=== PATIENT | male | born 1940 | race Caucasian/White ===

== ENCOUNTER 2018-09-21 17:48 | Observation (INO) | payer MEDICARE, OTHER, SELFPAY ==
[2018-09-16 09:09] VITALS: BMI 24.0
[2018-09-21] VITALS (12 sets, daily range): BP systolic 124–154; BP diastolic 64–87; PULSE 53–66; RESP 15–17; TEMP 36–36.8; O2SAT 93–97; BMI 24.2
[2018-09-21] MEDS: LACTATED RINGERS 1,000 ML 42 ML IV (09:52)
--- NOTE | 2018-09-21 10:11 | PM.PREOP ---
Pre-operative Note Interval Note History & Physical reviewed/Exam performed by Physician: Yes Changes to H&P: No H&P completed within 30 days and has changed as indicated here:: Patient seen and examined in the preoperative area. Surgical site marked accordingly. History physical examination from September 08, 2018 has not changed. Proceed with hernia repair today as planned.
[2018-09-21] MEDS: CEFAZOLIN 2 GM/100 ML FROZ.PIGGY IV (10:22)
--- NOTE | 2018-09-21 10:46 | SUR.OPER ---
Supine on padded OR bed, head on pillow, arms secured on padded arm boards at <90 degrees abduction, legs uncrossed, safety belt at thigh, tape over blanket over lower legs.
[2018-09-21] MEDS: CEFAZOLIN 1 GM VIAL IV (10:51)
[2018-09-21] MEDS: BUPIVACAINE 0.5% (PF) VIAL 30 ML INJ (10:52)
[2018-09-21] MEDS: LIDOCAINE 1% W/EPI INJ 20 ML INJ (10:53)
--- NOTE | 2018-09-21 11:53 | PM.OP.1 ---
Operative Date/Time/Diagnoses Date of procedure: 09/21/18 Time of procedure: 11:53 Pre-op diagnosis: Symptomatic right inguinal hernia Post-op diagnosis: other (Symptomatic reducible indirect right inguinal hernia) Procedure & Clinicians Procedure: Open right inguinal hernia repair with mesh Same procedure as scheduled: Yes Indications: 78-year-old male who presented with painful intermittent right inguinal mass. Examination and evaluation were consistent with hernia. Repair was recommended. Surgeon: Trey Carrillo Anesthesia Type: General Operative Notes Findings: 1. Moderate-sized indirect right inguinal hernia sac which was reducible 2. No evidence of direct inguinal hernia 3. Testicles in normal descended position bilaterally at the end the case. Closure Type: primary Specimen(s): none sent Prosthetic devices, grafts, tissues, transplants, or devices: Medium-size Pro Loop polypropylene mesh plug and patch right inguinal canal Applied: other (Mesh as above) Estimated Blood Loss (mL): 5 Blood products transfused: none Procedure in detail: After obtaining informed consent the patient was brought to the operating room placed supine on the table. After satisfactory induction of anesthesia the groin and abdomen including the genitalia were prepped and draped in usual sterile fashion. SCOAP time out was performed per standard protocol. Transverse incision was designed for distance of approximately 4 cm across the lower aspect of the right inguinal canal. Area was infiltrated with a 1 :1 mixture of 1% lidocaine with 1:100,000 epinephrine and 0.5% plain Marcaine for postoperative analgesia. Skin incision was created with 15 scalpel blade followed by the Bovie for hemostasis. Dissection proceeded down through the subcutaneous tissue to the external oblique fascia. A Weitlaner retractor was used to provide exposure. External oblique fascia was divided in the direction of its fibers with a 15 scalpel blade followed by Metzenbaum scissors to the level the external inguinal ring. Edges of the fascia were secured with hemostats and elevated into the operative field. Blunt dissection revealed the iliopubic tract, conjoined tendon, and rectus fascia. Spermatic cord was encircled bluntly with the surgeon's fingers followed by a Kit drain. Meticulous blunt dissection using DeBakey forceps was employed to skeletonize the spermatic cord. A few cremasteric fibers were divided with the Bovie. Findings are as above. Hernia sac was reduced into the abdominal cavity and no other abnormalities appreciated. Mesh was brought onto the operative field and soaked in Ancef solution. Plug was placed into the internal inguinal ring and secured with interrupted 2 0 Vicryl suture to adjacent muscle fibers and transversalis fascia. Onlay patch was placed over the floor of the right inguinal canal and secured circumferentially with interrupted 0 Ethibond suture. Anteriorly the mesh was secured to the conjoined tendon while laterally was secured to the iliopubic tract. Medially mesh was secured to the rectus fascia. Tails of the mesh were brought around the spermatic cord and placed deep to the external oblique fascia where they were secured with a single 0 Ethibond suture. Great care was taken avoid strangulation of the spermatic cord and the defect between the cord and the mesh easily admitted a Joanne clamp. Hemostasis was verified and the wound was irrigated with copious amount sterile saline solution. No evidence of hemorrhage or other issues were appreciated. Mesh was in good position. Spermatic cord was replaced in its usual anatomic position and the external oblique fascia was closed over the cord with running 3 0 Vicryl suture. Subcutaneous tissue was reapproximated with interrupted 3 0 Vicryl suture as well. Skin was closed with running 4 0 Monocryl suture in a subcuticular fashion. Dermal adhesive was applied to the skin. Anesthesia was reversed and patient extubated in the operating room. He was taken recovery stable condition. Complications: none Condition: stable Disposition: PACU Plan for aftercare: 1. Discharge home 2. Follow up in surgery Clinic in 2 weeks
--- NOTE | 2018-09-21 12:39 | SUR.PHASEII ---
1213 To OPD, to bedside. Patient awake, talking, comfortable w/o nausea; fluids given.
--- NOTE | 2018-09-21 12:48 | SUR.PHASEII ---
Patient was dressing, standing up when he noticed a lack of strength in the right leg. Observed patient attempting to stand, right leg gave out. He is dressed, returned to bed. No pain/nausea, otherwise stable. Pudding and coffee given.
--- NOTE | 2018-09-21 13:14 | SUR.PHASEII ---
Dr. Carrillo returned phone call; informed him of RLE weakness. He stated that he had told the staff to expect it (hadn't been passed on). Patient resting comfortably.
--- NOTE | 2018-09-21 13:20 | SUR.PHASEII ---
Lunch ordered, juice given. States that he cannot lift his leg below the knee. Informed patient that the doctor anticipated the weakness.
--- NOTE | 2018-09-21 14:05 | SUR.PHASEII ---
Dr. Carrillo came and spoke with patient/examined surgical site approx. 1350. Will continue to observe the patient until strength is improved. Tolerated lunch well.
--- NOTE | 2018-09-21 14:11 | SUR.PHASEII ---
Ice pack refreshed, states that he is comfortable, continues to be at bedside. Incision remains CDI
--- NOTE | 2018-09-21 17:48 | P.HP_ITS ---
History of Present Illness Date Patient Seen: 09/21/18 Time Patient Seen: 17:44 Chief complaint: inguinal right hernia repair [id number] Narrative: 78-year-old male who underwent otherwise uncomplicated open right inguinal hernia repair with mesh today. He received local anesthesia as part o f the procedure in an effort to prevent postoperative significant groin pain. Following emergence from anesthesia he had right leg weakness and was unable to ambulate appropriately in the PACU. He attempted to stand at the bedside unassisted despite nursing orders to the contrary and promptly slumped to the floor. He states he did not strike his head her back or other issues. He denies any significant pain. However, he is now at least 6 hr postoperative and has weakness of the quadriceps muscle with inability to completely bear weight on the right knee. Physical therapy has consulted and evaluated the patient. He is stable on a walker but remains unstable for independent ambulation. He is therefore admitted for observation. Patient History Medical History Foot fracture, right (Acute) Gastroesophageal reflux disease (Acute) Hyperlipidemia (Acute) Hypertension (Acute) Restless legs syndrome (Acute) Surgical History History of colonoscopy (Acute) Status post excision of lipoma (Acute) Family History Other Diabetes mellitus Social History marital status: household members: spouse occupational status: previously employed Smoking Status: Never smoker alcohol intake: current substance use type: does not use Family & Social History Social History: household members spouse Tobacco & Substance use: Smoking Status Never smoker alcohol intake current Substance Use Type does not use Meds Home Medications Medication Instructions Recorded Confirmed Type zinc 50 mg PO DAILY #0 07/01/11 09/21/18 History Midol 2 tab PO PRN PRN #0 02/20/17 09/21/18 History fluocinonide 0.05 % topical cream 1 applictn TOP DAILY PRN gram 09/08/18 09/21/18 History inulin 2 gram chewable tablet 2 gram PO BEDTIME tab 09/08/18 09/21/18 History losartan 50 mg tablet 50 mg PO DAILY 09/08/18 09/16/18 History melatonin 5 mg capsule 5 mg PO .qhs PRN cap 09/08/18 09/21/18 History omeprazole 20 mg capsule,delayed 20 mg PO DAILY 09/08/18 09/21/18 History release simvastatin 20 mg tablet 20 mg PO BEDTIME 09/08/18 09/21/18 History docusate sodium [Colace] 100 mg PO BID #14 cap 09/21/18 Rx hydromorphone [Dilaudid] 2 mg PO Q4-6H PRN #20 tab 09/21/18 Rx melatonin 10 mg PO BEDTIME PRN 09/21/18 09/21/18 History sennosides [Senokot] 8.6 mg PO BEDTIME #10 tab 09/21/18 Rx Allergies Allergy/AdvReac Type Severity Reaction Status Date / Time codeine [CODEINE] Allergy Mild Nausea Verified 09/21/18 09:58 Antihistamines - Alkylamine Allergy Unknown Testicular Verified 09/21/18 09:58 [ANTIHISTAMINES - ALKYLAMINE] pain Antihistamines - Ethanolamine Allergy Unknown Testicular Verified 09/21/18 09:58 [ANTIHISTAMINES - pain ETHANOLAMINE] Antihistamines - Allergy Unknown Testicular Verified 09/21/18 09:58 Ethylenediamine pain [ANTIHISTAMINES - ETHYLENEDIAMINE] Antihistamines - Piperazine Allergy Unknown Testicular Verified 09/21/18 09:58 [ANTIHISTAMINES - PIPERAZINE] pain erythromycin base AdvReac Mild NAUSEA, Verified 09/21/18 09:58 [ERYTHROMYCIN BASE] rash morphine [MORPHINE] AdvReac Mild Nausea Verified 09/21/18 09:58 lisinopril AdvReac Cough Verified 09/21/18 09:58 Review of Systems Review of Systems All systems reviewed & are unremarkable except as noted in HPI and below Exam Vital Signs (past 8 hours): - 09/21/18 09:52 09/21/18 11:46 09/21/18 11:49 Temperature 97.4 F L 96.8 F L Pulse Rate 53 L 60 58 L Respiratory Rate 15 15 15 Blood Pressure 154/85 H 124/64 126/64 Pulse Oximetry 97 96 95 09/21/18 11:55 09/21/18 12:10 09/21/18 12:23 Temperature 96.8 F L 97.8 F Pulse Rate 64 60 59 L Respiratory Rate 16 16 15 Blood Pressure 135/68 134/78 129/76 Pulse Oximetry 94 94 09/21/18 13:26 09/21/18 14:20 Temperature 97.7 F 97.3 F L Pulse Rate 56 L 59 L Respiratory Rate 16 16 Blood Pressure 149/87 H 145/78 H Pulse Oximetry 95 97 Oxygen Delivery Method Room Air Narrative Exam Narrative: Elderly male in no acute distress. Alert oriented x3. is at the bedside regular rate and rhythm clear to auscultation in both lung maldonado. No wheezes abdomen soft, nondistended, nontender incision clean, dry, and intact he has limited ability to extend the knee. Flexion of the knee is preserved. He can raise the hip but does not appear to be completely tender that area. I see no obvious deformities. No significant edema. Objective Labs Labs: Pelvis and right knee x-rays pending. Assessment & Plan Assessment & Plan narrative: 78-year-old male with ongoing weakness following inadvertent right femoral nerve block during otherwise uncomplicated open right inguinal hernia repair. However, he did have a fall in the PACU. I see no obvious fractures or dislocations, but we will obtain x-rays as above. Otherwise he will be admitted for overnight observation and ongoing physical therapy. Tentatively planned discharge tomorrow as I suspect this will resolve. All above discussed with the patient and his . Orders written.
--- NOTE | 2018-09-21 17:59 | DI.RAD.S_ITS ---
PROCEDURE: XR PELVIS 1-2V INDICATIONS: pain, right leg weakness after falling TECHNIQUE: 1 view(s) of the pelvis acquired. COMPARISON: [facility], , PELVIS W UNILATERAL HIP LEFT, 05/22/2010, 0:12. FINDINGS: Bones: No fractures or dislocations. No suspicious bony lesions. Soft tissues: Visualized bowel gas pattern is normal. No suspicious soft tissue calcifications. IMPRESSION: No acute fracture. No osseous lesion. If clinical suspicion and/or symptoms persist, further assessment with repeat plainfilms, or advanced imaging (e.g., CT, MRI, or bone scan) may be helpful for further assessment. Dictated by: Angela Amor M.D. on 09/21/2018 at 18:34 Approved by: Angela Amor M.D. on 09/21/2018 at 18:34
--- NOTE | 2018-09-21 17:59 | DI.RAD.S_ITS ---
PROCEDURE: XR KNEE RT 3V INDICATIONS: pain, weakness after falling TECHNIQUE: 3 views of the knee were acquired. COMPARISON: None. FINDINGS: Bones: No fractures or dislocations. No suspicious bony lesions. Soft tissues: No joint effusion. No suspicious soft tissue calcifications. IMPRESSION: No acute fracture. No osseous lesion. If clinical suspicion and/or symptoms persist, further assessment with repeat plainfilms, or advanced imaging (e.g., CT, MRI, or bone scan) may be helpful for further assessment. Dictated by: Angela Amor M.D. on 09/21/2018 at 18:34 Approved by: Angela Amor M.D. on 09/21/2018 at 18:35
--- NOTE | 2018-09-21 18:33 | SUR.PHASEII ---
Addendum entered by Randi Walton R.N. 09/21/18 18:49: R groin remains intact with surgical glue, some bruising at sight no swelling, some bruising to underside of penis and scrotum, no swelling, ice pack replaced to area. Original Note: Assumed care of pt at 1710 from Kun FIORE. Pt attempted to stand with assist with walker and r leg haven when weigh bears. Bladder appeared distended, pt asked to void in urinal unable.Bladder scanned showed over 900mls. Dr. Carrillo notified I&O cath ordered and completed, 925mls clear yellow urine out. Dr. Carrillo examined pt at bedside- xrays ordered, pt to stay over night, Felisa FIORE Coordinator notified, room 205 available. Pt transported up to room via stretcher, after stopping off at radiology for xrays to be done. Pt left in room under the care of ADEBAYO Hernandez and left in stable condition.
--- NOTE | 2018-09-21 20:01 | PM.PN.1 ---
Subjective Date Patient Seen: 09/21/18 Time Patient Seen: 20:01 Interval history: Patient denies any current pain. Still has numbness over the anterior distal thigh, patella, and pretibial area down to the dorsum of the foot. No numbness elsewhere. Now able to extend his knee more readily with full range of motion however remained somewhat weak compared the left side. Flexion remains normal at the knee. Dorsiflexion of the foot as well as extension at the ankle is completely normal. He is eat dinner and has no nausea vomiting. No pain at his incision. No abdominal pain. He has not urinated since undergoing straight catheterization in the PACU prior to admission. Exam Vital Signs (past 8 hours): - 09/21/18 12:10 09/21/18 12:23 09/21/18 13:26 Temperature 96.8 F L 97.8 F 97.7 F Pulse Rate 60 59 L 56 L Respiratory Rate 16 15 16 Blood Pressure 134/78 129/76 149/87 H Pulse Oximetry 94 95 09/21/18 14:20 09/21/18 17:40 Temperature 97.3 F L 98.3 F Pulse Rate 59 L 66 Respiratory Rate 16 16 Blood Pressure 145/78 H 141/69 H Pulse Oximetry 97 97 Oxygen Delivery Method Room Air Narrative Exam Narrative: Neurologic exam is as above in HPI patient remains afebrile and otherwise hemodynamically stable he is alert oriented x3 resting comfortably in bed watching television at the time of my visit just now Abdomen soft, nondistended, nontender incision clean and dry and intact Light touch is grossly intact along the lateral femoral cutaneous distribution as well as the ileoinguinal distribution On the right side Objective Labs Labs: pelvic x-ray and knee x-ray are reviewed and show no evidence of any dislocation or fracture. Assessment & Plan Assessment & Plan narrative: 78-year-old male with iatrogenic inadvertent femoral block at the time of inguinal hernia earlier today which is slowly resolving as the lidocaine and Marcaine are metabolized. He is otherwise quite stable and doing well. I anticipate he will be at or near baseline by tomorrow at which time he could be discharged. I discussed this with him this evening. He voiced understanding. Quality VTE Deep Vein Thrombosis/Pulmonary Embolism Present on Admission: No
--- NOTE | 2018-09-21 21:35 | PC.NURSE ---
Addendum entered by Venecia Fields R.N. 09/21/18 21:36: Lungs clear, SpO2 96% RA. Unable to move lower right leg, States it feels numb when first arrived. At this time, he is able to swing lower leg and stand at bedside. Unable to walk more that one step. Durobond on RLQ intact/patent. HL in YESI intact/patent. Stable post op course. Call light w/in reach, bed alrm on for pt safety. Continue w/plan of care. Original Note: Pt arrived to from PACU. Alert, oriented, Lungs clear, SpO2,
[2018-09-22] MEDS: HYDROMORPHONE 2 MG TABLET PO ×2 (00:09→07:58)
--- NOTE | 2018-09-22 02:09 | PC.NURSE ---
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 Vital signs stable. Incision site is open to air: some bruising noted around incision, dermabond intact, no drainage or swelling noted. Pt states he is having 5/10 pain and requesting pain medication. Medicated with Dilaudid 2mg po.
[2018-09-22 03:15] VITALS: BP 136/79; PULSE 79; RESP 16; TEMP 36.7; O2SAT 93
[2018-09-22 08:00] VITALS: BP 101/67; PULSE 65; RESP 16; TEMP 36.9; O2SAT 94
--- NOTE | 2018-09-22 08:29 | P.DS_ITS ---
History of Present Illness Date Patient Seen: 09/22/18 Time Patient Seen: 08:24 Chief complaint: inguinal right hernia repair [id number] Narrative: 78-year-old male who underwent otherwise uncomplicated open right inguinal hernia repair with mesh today. He received local anesthesia as part o f the procedure in an effort to prevent postoperative significant groin pain. Following emergence from anesthesia he had right leg weakness and was unable to ambulate appropriately in the PACU. He attempted to stand at the bedside unassisted despite nursing orders to the contrary and promptly slumped to the floor. He states he did not strike his head her back or other issues. He denies any significant pain. However, he is now at least 6 hr postoperative and has weakness of the quadriceps muscle with inability to completely bear weight on the right knee. Physical therapy has consulted and evaluated the patient. He is stable on a walker but remains unstable for independent ambulation. He is therefore admitted for observation. Discharge Providers Discharge Date: 09/22/18 Primary care physician: Trey Hooker MD Consults: 09/21/18 17:59 Consult to Physical Therapy Evaluate & Treat Comment: Physician Instructions: Evaluate and Treat Discharge provider: Trey Carrillo MD Summary Discharge Diagnosis: Open right inguinal hernia repair with mesh September 21, 2018 right leg weakness secondary to inadvertent right femoral nerve block following inguinal hernia repair September 21, 2018, subsequently resolved Foot fracture, right (Acute) Gastroesophageal reflux disease (Acute) Hyperlipidemia (Acute) Hypertension (Acute) Restless legs syndrome (Acute) History of colonoscopy (Acute) Status post excision of lipoma (Acute) Hospital Course: patient was admitted from the PACU for right leg weakness as above and overnight observation following an otherwise uncomplicated procedure. By the morning of postoperative day 1 he was ambulating without difficulty. No further numbness. He had spontaneous return of bowel bladder function. Tolerating a regular diet without difficulty. No nausea or vomiting. Pain is controlled with oral Dilaudid as prescribed. He remained afebrile and otherwise hemodynamically stable throughout his overnight stay. He is therefore discharged home on postoperative day 1. I reiterated his postoperative structures as previously documented. All questions were answered to his satisfaction, and he voiced understanding. He will follow up in surgery Clinic in 2 weeks as scheduled. Status at Discharge Cognitive/behavioral status at discharge: oriented Functional status at discharge: independent ambulation Overall status at discharge: patient is progressing back to baseline Time Spent with Patient Less than 30 minutes Exam Vital Signs (past 8 hours): - 09/22/18 03:15 Temperature 98.1 F Pulse Rate 79 Respiratory Rate 16 Blood Pressure 136/79 Pulse Oximetry 93 Oxygen Delivery Method Room Air Oxygen Flow Rate 0 Narrative Exam Narrative: Well-nourished well-developed male in no acute distress sit ting comfortably at bedside eating his breakfast at the time my visit. no fevers and no tachycardia overnight. he is alert oriented x3. He is in good spirits. In fact, he is quite anxious to be discharged home this morning. He is awaiting the arrival of his currently. Sclera nonicteric chest clear to auscultation. Regular rate rhythm abdomen soft, nondistended, nontender Right inguinal incision is clean, dry, and intact. Minimal edema. No ecchymosis, hematoma, or seroma. I personally had him stand and ambulate at the bedside around the room. He did not require assistance. Has full range of motion of the right knee and quadriceps. Full range of motion of the right hip. No pain with ambulation. Extremities show no clubbing, cyanosis, or edema Objective Labs Labs: pelvic x-ray and the x-ray last evening are as previously documented but with no evidence of dislocation or fracture. No acute disease. Discharge Plan Discharge Plan Patient Disposition: Home Discharge comment: Bruising to your R lower quandrant and scrotal area R side can happen, don't be alarmed; for discomfort you may apply ice to the effected area, be sure to use a washcloth/towel as a barrier from the ice and skin. Discharge Med Rec/Prescriptions Prescriptions: New sennosides [Senokot] 8.6 mg tablet 8.6 mg PO BEDTIME Qty: 10 RF: 1 docusate sodium [Colace] 100 mg capsule 100 mg PO BID Qty: 14 RF: 1 hydromorphone [Dilaudid] 2 mg tablet 2 mg PO Q4-6H PRN (Reason: pain) Qty: 20 RF: 0 Continued zinc 50 mg Tablet 50 mg PO DAILY Qty: 0 RF: 0 Midol 500-25 mg tablet 2 tab PO PRN PRN (Reason: Headache) Qty: 0 RF: 0 losartan 50 mg tablet 50 mg PO DAILY RF: 0 fluocinonide 0.05 % cream 1 applictn TOP DAILY PRN (Reason: psoriasis) RF: 0 Fiber Gummies 2 gram tablet,chewable 2 gram PO BEDTIME RF: 0 simvastatin 20 mg tablet 20 mg PO BEDTIME RF: 0 omeprazole 20 mg capsule,delayed release(DR/EC) 20 mg PO DAILY RF: 0 melatonin 5 mg capsule 5 mg PO .qhs PRN (Reason: Sleep) RF: 0 melatonin 10 mg Tablet 10 mg PO BEDTIME PRN (Reason: Sleep) RF: 0 Follow up/Referrals: Trey Hooker MD [Primary Care Provider] - Trey Carrillo MD [Physician] - 2 Weeks Discharge Orders: Discharge (Order); Ordered 09/22/18 Ordered By: Trey Carrillo Provider Discharge Instructions Diet: Diet as Tolerated Activity: No lifting more than 20 lb for 4 weeks No driving while taking opioid pain medication May walk as much as desired May climb stairs May ride in vehicle Cold/Heat Therapy: May apply ice pack to incision as needed for comfort Expect some bruising and swelling in the groin and potentially genitalia Skin/Wound/Dressing Care Report to your healthcare provider any signs of infection, such as:: chills, fever, night sweats, increased pain, unusual drainage and unusual redness Dressing: No dressing necessary Other wound treatment: November shower beginning September 22, 2018 Do not soak incision in bathtub or pool for 2 weeks Visit Report/Discharge Packet Instructions: [facility]: Wound Care Discharge Data Primary Care Provider: Trey Hooker Attending Provider: Trey Carrillo Quality VTE Deep Vein Thrombosis/Pulmonary Embolism Present on Admission: No
--- NOTE | 2018-09-22 09:10 | PT.IIE ---
Current Diagnoses Unilateral inguinal hernia, without obstruction or gangrene, not specified as recurrent (09/21/18) Surgery Performed Operation Date: 09/21/18 10:45 Actual Procedures p Hernia Repair - Inguinal WITH MESH(Right) - rTey Carrillo MD Surgical History (Last Reviewed 09/21/18 @ 17:46 by Trey Carrillo MD) History of colonoscopy (Acute) Status post excision of lipoma (Acute) Medical History (Last Reviewed 09/21/18 @ 17:46 by Trey Carrillo MD) Foot fracture, right (Acute) Gastroesophageal reflux disease (Acute) Hyperlipidemia (Acute) Hypertension (Acute) Restless legs syndrome (Acute) Physical Therapy Inpatient Evaluation/Re-Eval M1 PT/OT-IP Prior Functional Status Start: 09/22/18 09:10 Freq: NEEDED Status: Active Protocol: Document 09/22/18 09:10 EA (Rec: 09/22/18 09:34 EA [id number]) Medical Review Prior Functional Status Medical History Reviewed Yes Diet/Fluid Consistency Regular Communication Alert, O x 3 Mobility and Gait Indepedent with no AD. Fall once in six months due to wet floor Social History Household Members spouse Living Arrangements House Number of Floors (Floors) One Floor Number of Stairs To Enter/Railing? 2 steps to get in with no rails Home Environment Standard Height Toilet Home Equipment Straight Cane Crutches Employment Status Retired Additional Social History Comment Patient reports has active lifestyle prior to admission; states does grass mowing and others house chores and walks outside daily. M2 PT-IP Current Condition Start: 09/22/18 09:10 Freq: NEEDED Status: Active Protocol: Document 09/22/18 09:10 EA (Rec: 09/22/18 09:34 EA [id number]) Physical Therapy Current Condition Current Condition Evaluation Date 09/22/18 Treatment Diagnosis Ss/p right ingunial hernia repair 09/21/17; gait difficulty/instability Precautions Other Precautions Breath holding/Valsalva maneuver. Weight Bearing Status Weight Bearing Status Weight Bear as Tolerated M3 PT-IP Subjective Start: 09/22/18 09:10 Freq: NEEDED Status: Active Protocol: Document 09/22/18 09:10 EA (Rec: 09/22/18 09:34 EA [id number]) Subjective Physical Therapy Visit Type Type Initial Evaluation Visit Start Time 08:30 Visit Stop Time 09:00 Total Visit Minutes 30 Physical Therapy Visit Comments Patient Comments Patient received in the room bathroom independently. Patient would like to go home today; states he feels much better than right after the surgery yesterday where he felt unstable. Pt agreeable to perform evaluation prior to discharge. Patient Goals Independent prior to discharge. Therapy Pain Assessment Pain When Pain Assessed During Mobility Pain Present Pain Present Pain Reported Location Right Anterior Groin Intensity 2 Description Acute Pain Behaviors Wincing M4 PT-IP Mobility and Gait Start: 09/22/18 09:10 Freq: NEEDED Status: Active Protocol: Document 09/22/18 09:10 EA (Rec: 09/22/18 09:34 EA [id number]) PT-Bed Mobility Assessment Rolling Type of Rolling Log Rolling Level of Assist Independent Supine to Sit Supine to Sit Standby Assistance Sit to Supine Sit to Supine Standby Assistance Scooting Scooting to Edge of Bed Standby Assistance PT-Transfer Assessment Sit to and From Stand Sit to and from Stand Standby Assistance Equipment Transfer Assistive Device None Transfers Transfer Destination Bed Chair Toilet Transfer Technique stepping Transfer Ability Level of Assist Standby Assistance Gait Assessment Gait Gait Assistance Required: Standby Assistance Able to Maintain Weight Bearing Status Yes During Gait Assistive Devices Assistive Device None Gait Deviations General Gait Pattern Antalgic Factors Limiting Gait Function Factors Limiting Gait Function Pain Comments Gait Comments Patient ambulates with no instability noted with no use of AD. Stair Climbing Assessment Evaluation Level of Assist On Stairs Standby Assistance Technique/Endurance Stair Climbing Direction Ascend and Descend Stair Climbing Technique Step to Step Number of Steps Climbed 4 Query Text: Stair Climbing Set # Repetitions (reps) 1 PT-Balance Assessment Sitting Balance and Reactions Static Sitting Balance Ability Normal Dynamic Sitting Balance Ability Normal Standing Balance and Reactions Static Standing Balance Ability Normal Dynamic Standing Balance Ability Good Balance Tests Single Limb Standing < 3 secs Romberg > 15 secs Functional Reach Test > 10 Tandem Standing 10 secs each leg Comments Other Balance Tests/Deviations/Treatment Patient transfers and mobility : exhibits no instability but with slight antalgic gait due to groin pain. Functional Assessments Functional Tests Timed Up and Go < 10 secs M5 PT-IP Objective Assessments Start: 09/22/18 09:10 Freq: NEEDED Status: Active Protocol: Document 09/22/18 09:10 EA (Rec: 09/22/18 09:34 EA [id number]) Orientation Orientation/Cognition Level of Alertness Alert Orientation Name Age Language Function Ability No Deficits Noted Safety Awareness Understands Safety Issues Memory Description No Deficits Noted Gross Range of Motion Upper Extremity ROM Assessment Left Impaired Impairments Left shoulder LOM due to a.c separation. Lower Extremity ROM Assessment Within Functional Limits Strength Upper Extremity Strength Assessment Left Impaired Shoulder shoulder ABD/Flex, ER at least 3+/5 Elbow WFL Wrist WFL Hand WFL Lower Extremity Strength Assessment Right Impaired Hip Not properly tested due to hip pre-caution but with at least 3/5 Knee WFL Ankle WFL Coordination Assessment Gross Coordination Gross Coordination WNL Assessment Finger to Nose Test Normal Performance Pronation/Supination Test Normal Performance Foot Tapping Test Normal Performance Heel on Mejia Test Normal Performance Sensation Assessment Sensation Gross Sensation WNL Light Touch Intact Proprioception (Position) Intact M6 PT-IP Treatment Start: 09/22/18 09:10 Freq: NEEDED Status: Active Protocol: Document 09/22/18 09:10 EA (Rec: 09/22/18 09:34 EA [id number]) Physical Therapy Treatment Education Education Provided Precautions Weight Bearing Status Safety M7 PT-IP Assessment and Plan Start: 09/22/18 09:10 Freq: NEEDED Status: Active Protocol: Document 09/22/18 09:10 EA (Rec: 09/22/18 09:34 EA [id number]) PT Summary Assessment and Plan Potential Rehabilitation Potential Excellent Status of Condition at Evaluation Stable Summary Impairments Pain Gait Activity Tolerance Progress Towards Goals Safe For Discharge Assessment Summary Patient demonstrates SBA/ supervision assist during transfers and ambulation to firm flat surface (100ft w/ no AD) and able to navigate stairs safely. He understands safety and pre-cautions learned at all times. Patient is safe to discharge to home with the use of of straight cane to left arm or as needed. Frequency of Treatment Frequency Of Treatment Discharge Discharge Recommendations PT Discharge Recommendations Home with Assistance
== END 2018-09-22 11:15 | disposition home or self-care (01) ==
LOC: OR 09-22 11:29
PROVIDERS: Admitting Provider Surgery; Family Provider Internal Medicine; PCP Internal Medicine; Visit Provider Surgery
PROC: (CPT 49505; principal; 2018-09-21 10:45)
DX: K40.90 Unilateral inguinal hernia, without obstruction or gangrene, not specified as recurrent (principal); I10 Essential (primary) hypertension; E78.5 Hyperlipidemia, unspecified; R53.1 Weakness; W18.30XA Fall on same level, unspecified, initial encounter; Y92.238 Other place in hospital as the place of occurrence of the external cause
CPT/HCPCS: 49505; 72170; 73562; 97161; 97530; C1781; G0378; J0690; J1100; J2405; J2704; J3010

== ENCOUNTER → 2019-03-02 14:30 | Outpatient (CLI) | payer MEDICARE, OTHER, SELFPAY ==
[2018-09-21 18:48] VITALS: BMI 24.2
== END ==
PROVIDERS: PCP Internal Medicine; Visit Provider Internal Medicine
DX: M81.0 Age-related osteoporosis without current pathological fracture (principal); M89.9 Disorder of bone, unspecified
CPT/HCPCS: 77080

== ENCOUNTER 2019-08-26 18:59 | Emergency (ER) | payer MEDICARE, OTHER, SELFPAY ==
[2018-09-21 18:48] VITALS: BMI 24.2
[2019-08-26 19:07] VITALS: BP 123/65; PULSE 57; RESP 18; TEMP 36.8; O2SAT 92
--- NOTE | 2019-08-26 19:12 | DI.RAD.S_ITS ---
PROCEDURE: XR CHEST 2V INDICATIONS: cough,worried about pneumonia TECHNIQUE: 2 views of the chest were acquired. COMPARISON: [facility], CR, XR CHEST 1 VIEW, 01/03/2019, 18:58. FINDINGS: Surgical changes and devices: None. Lungs and pleura: Lungs are clear. No pleural effusions or pneumothorax. Mediastinum: Mediastinal contours are normal. Heart size is normal. Bones and chest wall: No suspicious bony abnormalities. Soft tissues appear unremarkable. IMPRESSION: No acute cardiopulmonary disease process. Dictated by: Stefania Velasquez MD, PhD on 08/26/2019 at 19:30 Approved by: Stefania Velasquez MD, PhD on 08/26/2019 at 19:30
--- NOTE | 2019-08-26 19:43 | ED_ITS ---
HPI - URI/Sore Throat General Chief Complaint: Upper Respiratory Symptoms Stated Complaint: has a cold Time Seen by Provider: 08/26/19 19:10 Source: patient Mode of arrival: Ambulatory Limitations: no limitations History of Present Illness HPI Narrative: 79M non smoker with history of GERD and HTN presents with runny nose, sneezing and cough for the past few days. He denies any measurable fever, production to his cough nor body aches, headache or sore throat. He has had no nausea, vomiting or diarrhea. Patient is otherwise well and free of complaint MD Complaint: cough and rhinorrhea Onset (ago): day(s) Duration: constant Severity: mild Relieving factors: nothing Able to tolerate fluids by mouth: Yes Treatments prior to arrival: none Related Data Home Medications Medication Instructions Recorded Confirmed zinc 50 mg PO DAILY #0 07/01/11 10/06/18 Midol 2 tab PO PRN PRN #0 02/20/17 09/21/18 fluocinonide 0.05 % topical cream 1 applictn TOP DAILY PRN gram 09/08/18 10/06/18 inulin 2 gram chewable tablet 2 gram PO BEDTIME tab 09/08/18 10/06/18 losartan 50 mg tablet 50 mg PO DAILY 09/08/18 10/06/18 melatonin 5 mg capsule 5 mg PO .qhs PRN cap 09/08/18 09/21/18 omeprazole 20 mg capsule,delayed 20 mg PO DAILY 09/08/18 10/06/18 release simvastatin 20 mg tablet 20 mg PO BEDTIME 09/08/18 10/06/18 melatonin 10 mg PO BEDTIME PRN 09/21/18 10/06/18 Previous Rx's Medication Instructions Recorded docusate sodium [Colace] 100 mg PO BID #14 cap 09/21/18 hydromorphone [Dilaudid] 2 mg PO Q4-6H PRN #20 tab 09/21/18 sennosides [Senokot] 8.6 mg PO BEDTIME #10 tab 09/21/18 Allergies Allergy/AdvReac Type Severity Reaction Status Date / Time codeine [CODEINE] Allergy Mild Nausea Verified 09/21/18 09:58 Antihistamines - Alkylamine Allergy Unknown Testicular Verified 09/21/18 09:58 [ANTIHISTAMINES - ALKYLAMINE] pain Antihistamines - Ethanolamine Allergy Unknown Testicular Verified 09/21/18 09:58 [ANTIHISTAMINES - pain ETHANOLAMINE] Antihistamines - Allergy Unknown Testicular Verified 09/21/18 09:58 Ethylenediamine pain [ANTIHISTAMINES - ETHYLENEDIAMINE] Antihistamines - Piperazine Allergy Unknown Testicular Verified 09/21/18 09:58 [ANTIHISTAMINES - PIPERAZINE] pain erythromycin base AdvReac Mild NAUSEA, Verified 09/21/18 09:58 [ERYTHROMYCIN BASE] rash morphine [MORPHINE] AdvReac Mild Nausea Verified 09/21/18 09:58 lisinopril AdvReac Cough Verified 09/21/18 09:58 Review of Systems Constitutional Constitutional: Denies chills, Denies fatigue, Denies fever(s), Denies frequent falls, Denies lethargy and Denies weakness Eyes Eyes: Denies change in vision, Denies eye discharge, Denies irritation and Denies loss of vision ENT Ears, Nose, Mouth, and Throat: Denies change in voice, Denies dizziness, Reports nasal congestion, Reports nasal discharge, Denies neck pain, Denies sore throat and Denies throat swelling Cardiovascular Cardiovascular: Denies chest pain, Denies irregular heart rhythm, Denies li ghtheadedness, Denies palpitations, Denies dyspnea on exertion and Denies orthopnea Respiratory Respiratory: Reports cough, Denies dyspnea on exertion and Denies wheezing Gastrointestinal Gastrointestinal: Denies abdominal pain, Denies change in bowel habits, Denies diarrhea, Denies nausea and Denies vomiting Genitourinary Genitourinary: Denies hematuria, Denies flank pain, Denies urinary incontinence and Denies urinary urgency Musculoskeletal Musculoskeletal: Denies back pain, Denies muscle weakness, Denies neck pain, Denies numbness and Denies tingling Integumentary/Breasts Skin/Breast: Denies pruritus, Denies erythema, Denies rash and Denies wounds Neurologic Neurologic: Denies behavioral changes, Denies confusion, Denies dizziness, Denies frequent falls, Denies loss of vision, Denies numbness, Denies tingling and Denies weakness Psychiatric Psychiatric: Denies anxiety, Denies behavioral changes, Denies confusion, Denies depression, Denies homicidal ideation and Denies suicidal ideation Endocrine Endocrine: Denies fatigue, Denies flushing and Denies palpitations Hematologic/Lymphatic Hematologic/Lymphatic: Denies easy bruising Allergic/Immunologic Allergic/Immunologic: Denies urticaria, Denies throat swelling and Denies wheezing Patient History Medical History Foot fracture, right (Acute) Gastroesophageal reflux disease (Acute) Hyperlipidemia (Acute) Hypertension (Acute) Restless legs syndrome (Acute) Surgical History History of colonoscopy (Acute) Status post excision of lipoma (Acute) Family History Other Diabetes mellitus Social History marital status: household members: spouse occupational status: previously employed Smoking Status: Never smoker alcohol intake: current substance use type: does not use Smoking Status: Never smoker alcohol intake frequency: holidays/special occasions only Substance Use Type: does not use Exam Narrative Exam Narrative: GEN: 79-year-old male appears stated age AOx3 and in no obvious distress EYES: Pupils are equal, round, and reactive to light and accommodation. Extra occular muscles are intact bilaterally. There is no subconjunctival hemorrhage or exudate. CHEST: Lungs are clear to auscultation bilaterally and free of wheezes, rales, or rhonchi. Heart rate is regular rhythm, there are no murmurs, clicks, rubs, or gallops. There is no chest wall tenderness. ABD: Abdomen is soft and nontender. There is no guarding or rebound. Bowel sounds are normal in all 4 quadrants. There is no mass or organomegaly. EXT: Full painless ROM of all extremities with no loss of sensation or strength. SKIN: Warm, pink, and dry. No erythema or rash Initial Vital Signs Initial Vital Signs: Vital Signs Temperature 98.2 F 08/26/19 19:07 Pulse Rate 57 L 08/26/19 19:07 Respiratory Rate 18 08/26/19 19:07 Blood Pressure 123/65 08/26/19 19:07 Pulse Oximetry 92 08/26/19 19:07 Course Orders Ordered: ED Orders 08/26/19 19:12 Chest [XR chest 2V] Stat 08/26/19 19:48 Influenza A & B (PCR) Stat Vital Signs Vital signs: Vital Signs - 8 hr 08/26/19 19:07 08/26/19 20:40 Temperature 98.2 F Pulse Rate 57 L 61 Respiratory Rate 18 17 Blood Pressure 123/65 118/72 Pulse Oximetry 92 98 MDM - URI/Sore Throat Lab Data Labs: Lab Results 08/26/19 Range/Units 19:48 Influenza A (RT-PCR) Flu a negative (NEGATIVE) Influenza B (RT-PCR) Flu b negative (NEGATIVE) Imaging Data Chest x-ray: Radiologist's Impression: [address] [address] XRay Report Signed Patient: Roosevelt Santana RMR#: [id number] : [id number]:[id number] Age/Sex: 79 / MDate of Service: 08/26/19 Loc: ED Accession Number: [id number] Procedure: XR chest 2V Ordering Provider: Derek Paniagua D.O. PROCEDURE: XR CHEST 2V INDICATIONS: cough,worried about pneumonia TECHNIQUE: 2 views of the chest were acquired. COMPARISON: [facility], , XR CHEST 1 VIEW, 01/03/2019, 18:58. FINDINGS: Surgical changes and devices: None. Lungs and pleura: Lungs are clear. No pleural effusions or pneumothorax. Mediastinum: Mediastinal contours are normal. Heart size is normal. Bones and chest wall: No suspicious bony abnormalities. Soft tissues appear unremarkable. IMPRESSION: No acute cardiopulmonary disease process. Dictated by: Stefania Velasquez MD, PhD on 08/26/2019 at 19:30 Approved by: Stefania Velasquez MD, PhD on 08/26/2019 at 19:30 Discharge Plan Departure Patient Disposition: Home Clinical Impression: Upper respiratory infection Qualifiers: URI type: unspecified viral URI Qualified Code(s): J06.9 - Acute upper respiratory infection, unspecified Discharge Date/Time: 08/26/19 20:41 Instructions: Common Cold Activity Restrictions/Additional Instructions: *You have been diagnosed with [viral upper respiratory infection] *What to do: *Take medications as directed *Follow up with your primary care provider in 2-3 days, call for an appointment. Let them know you were seen in the Emergency Department and that we ask that you be seen in follow up *Return to ER if you should have any new, worsening or concerning symptoms Prescriptions: No Action zinc 50 mg Tablet 50 mg PO DAILY Qty: 0 RF: 0 Midol 500-25 mg tablet 2 tab PO PRN PRN (Reason: Headache) Qty: 0 RF: 0 losartan 50 mg tablet 50 mg PO DAILY RF: 0 fluocinonide 0.05 % cream 1 applictn TOP DAILY PRN (Reason: psoriasis) RF: 0 Fiber Gummies 2 gram tablet,chewable 2 gram PO BEDTIME RF: 0 simvastatin 20 mg tablet 20 mg PO BEDTIME RF: 0 omeprazole 20 mg capsule,delayed release(DR/EC) 20 mg PO DAILY RF: 0 melatonin 5 mg capsule 5 mg PO .qhs PRN (Reason: Sleep) RF: 0 melatonin 10 mg Tablet 10 mg PO BEDTIME PRN (Reason: Sleep) RF: 0 sennosides [Senokot] 8.6 mg tablet 8.6 mg PO BEDTIME Qty: 10 RF: 1 docusate sodium [Colace] 100 mg capsule 100 mg PO BID Qty: 14 RF: 1 hydromorphone [Dilaudid] 2 mg tablet 2 mg PO Q4-6H PRN (Reason: pain) Qty: 20 RF: 0 Referrals: Trey Hooker MD [Primary Care Provider] -
[2019-08-26 20:24] LABS: Influenza A - CEPHEID Flu A NEGATIVE (NEGATIVE); Influenza B - CEPHEID Flu B NEGATIVE (NEGATIVE)
[2019-08-26 20:40] VITALS: BP 118/72; PULSE 61; RESP 17; O2SAT 98
== END 2019-08-26 20:41 | disposition home or self-care (01) ==
PROVIDERS: Emergency Provider Emergency Medicine; PCP Internal Medicine
DX: J06.9 Acute upper respiratory infection, unspecified (principal)
CPT/HCPCS: 71046; 87502; 99281; 99283

== ENCOUNTER 2019-12-27 12:15 | Emergency (ER) | payer MEDICARE, OTHER, SELFPAY ==
[2018-09-21 18:48] VITALS: BMI 24.2
[2019-12-27 12:26] VITALS: BP 166/86; PULSE 60; RESP 16; TEMP 36.6; O2SAT 96; BMI 25.0
--- NOTE | 2019-12-27 12:32 | DI.RAD.S_ITS ---
PROCEDURE: XR SHOULDER LT MIN 2V INDICATIONS: L shoulder pain post fall TECHNIQUE: 3 views of the shoulder were acquired. COMPARISON: [facility], , SHOULDER MINIMUM 2 VIEW LEFT, 02/20/2017, 18:19. FINDINGS: Bones: No fractures or dislocations. No suspicious bony lesions. Visualized ribs appear intact. Mild/moderate left shoulder joint degeneration. Soft tissues: No suspicious soft tissue calcifications. IMPRESSION: No fracture identified. If the patient's pain or other symptoms persist, consider further evaluation with MRI Dictated by: Omar Ruby M.D. on 12/27/2019 at 12:55 Approved by: Omar Ruby M.D. on 12/27/2019 at 12:56
--- NOTE | 2019-12-27 12:32 | DI.RAD.S_ITS ---
PROCEDURE: XR RIBS LT MIN 3V W CXR1V INDICATIONS: L mid/lateral rib pain post fall TECHNIQUE: 2 views of the left ribs were acquired, along with a single view chest. COMPARISON: None. FINDINGS: Surgical changes and devices: None. Bones and chest wall: No fractures or dislocations. No suspicious bony lesions. Overlying soft tissues appear unremarkable. Lungs and pleura: No pleural effusions or pneumothorax. Lungs appear clear. Mediastinum: Mediastinal contours appear normal. Heart size is normal. IMPRESSION: No acute disease. No fracture seen. Dictated by: Omar Ruby M.D. on 12/27/2019 at 12:52 Approved by: Omar Ruby M.D. on 12/27/2019 at 12:54
[2019-12-27 12:33] VITALS: PULSE 60
--- NOTE | 2019-12-27 12:50 | ED.UPPEXIN ---
HPI - Extremity Injury (Upper) <Lory MoreiraMARIAH - Last Filed: 12/27/19 14:51> General Chief Complaint: Extremity Injury, Upper Stated Complaint: fell week ago injured left side Time Seen by Provider: 12/27/19 12:17 Source: patient Mode of arrival: Ambulatory Limitations: no limitations History of Present Illness HPI narrative: 79-year-old male with a history of high cholesterol, presents emergency department for left rib and shoulder pain after a fall a week ago. He states he was walking on the sidewalk and the heel in his boot caught a crack in the sidewalk and he fell on the grass on his left side. He states he fell on his ribs and shoulder. Patient denies hitting his head, denies neck pain, denies seeing any blood thinners. Patient reports he has history of a left rotator cuff injury to his shoulder, recently had a steroid injection the past few months which has helped. However, after his fall he reports increasing pain to his left shoulder as well as his left lateral ribs. Patient states this pain is a sharp stabbing pain that is worse with taking a deep breath or certain movements. He occasionally has pain when he lifts his arm over his head but states that his rib pain is worse than his shoulder pain. Patient denies any syncope, vomiting, headache post fall, dizziness, nausea, vomiting, diarrhea, or other concerns. Related Data Home Medications Medication Instructions Recorded Confirmed zinc 50 mg PO DAILY #0 07/01/11 10/06/18 Midol 2 tab PO PRN PRN #0 02/20/17 09/21/18 fluocinonide 0.05 % topical cream 1 applictn TOP DAILY PRN gram 09/08/18 10/06/18 inulin 2 gram chewable tablet 2 gram PO BEDTIME tab 09/08/18 10/06/18 losartan 50 mg tablet 50 mg PO DAILY 09/08/18 10/06/18 melatonin 5 mg capsule 5 mg PO .qhs PRN cap 09/08/18 09/21/18 omeprazole 20 mg capsule,delayed 20 mg PO DAILY 09/08/18 10/06/18 release simvastatin 20 mg tablet 20 mg PO BEDTIME 09/08/18 10/06/18 melatonin 10 mg PO BEDTIME PRN 09/21/18 10/06/18 Previous Rx's Medication Instructions Recorded docusate sodium [Colace] 100 mg PO BID #14 cap 09/21/18 hydromorphone [Dilaudid] 2 mg PO Q4-6H PRN #20 tab 09/21/18 sennosides [Senokot] 8.6 mg PO BEDTIME #10 tab 09/21/18 cyclobenzaprine 5 mg PO BEDTIME PRN #10 tab 12/27/19 Allergies Allergy/AdvReac Type Severity Reaction Status Date / Time codeine [CODEINE] Allergy Mild Nausea Verified 09/21/18 09:58 Antihistamines - Alkylamine Allergy Unknown Testicular Verified 09/21/18 09:58 [ANTIHISTAMINES - ALKYLAMINE] pain Antihistamines - Ethanolamine Allergy Unknown Testicular Verified 09/21/18 09:58 [ANTIHISTAMINES - pain ETHANOLAMINE] Antihistamines - Allergy Unknown Testicular Verified 09/21/18 09:58 Ethylenediamine pain [ANTIHISTAMINES - ETHYLENEDIAMINE] Antihistamines - Piperazine Allergy Unknown Testicular Verified 09/21/18 09:58 [ANTIHISTAMINES - PIPERAZINE] pain erythromycin base AdvReac Mild NAUSEA, Verified 09/21/18 09:58 [ERYTHROMYCIN BASE] rash morphine [MORPHINE] AdvReac Mild Nausea Verified 09/21/18 09:58 lisinopril AdvReac Cough Verified 09/21/18 09:58 Review of Systems <MARIAH Figueroa - Last Filed: 12/27/19 14:51> Review of Systems Narrative: REVIEW OF SYSTEMS: GENERAL: Denies fever or chills. HENT: No head trauma. EYES: No double vision or vision loss. CARDIOVASCULAR: No chest pain or syncope. RESPIRATORY: No shortness of breath or cough. GASTROINTESTINAL: No nausea, vomiting, diarrhea, or constipation. GENITOURINARY: No flank pain or dysuria. MUSCULOSKELETAL: Complains of left shoulder and rib pain, see HPI. INTEGUMENTARY: No rash, lesions, or pruritus. NEURO: No numbness, tingling. PSYCH: No behavior or mood changes. Patient History <MARIAH Figueroa - Last Filed: 12/27/19 14:51> Medical History (Updated 12/27/19 @ 13:07 by MARIAH Figueroa) Foot fracture, right (Acute) Gastroesophageal reflux disease (Acute) Hyperlipidemia (Acute) Hypertension (Acute) Restless legs syndrome (Acute) Surgical History (Updated 12/27/19 @ 12:39 by Greta Mcmanus RN) History of colonoscopy (Acute) Hx of right inguinal hernia repair (Acute) Status post excision of lipoma (Acute) Family History Other Diabetes mellitus Social History marital status: household members: spouse occupational status: previously employed Smoking Status: Never smoker alcohol intake: current substance use type: does not use Smoking Status: Never smoker alcohol intake frequency: holidays/special occasions only Substance Use Type: does not use Exam <MARIAH Figueroa - Last Filed: 12/27/19 14:51> Initial Vital Signs Initial Vital Signs: Vital Signs Temperature 97.8 F 12/27/19 12:26 Pulse Rate 60 12/27/19 12:26 Respiratory Rate 16 12/27/19 12:26 Blood Pressure 166/86 H 12/27/19 12:26 Pulse Oximetry 96 12/27/19 12:26 PHYSICAL EXAMINATION: GENERAL: Well groomed, alert, and cooperative. Answers questions promptly and appropriately. Vital signs noted. HENT: Normocephalic, atraumatic. EYES: Symmetrical, sclera white, no periorbital swelling. NECK: No tenderness, full range of motion. CARDIOVASCULAR: S1 and S2 sounds normal. Regular rate and rhythm, no murmurs, clicks, or bruits. No pedal edema. RESPIRATORY: Normal respiratory rate, trachea midline, airway patent. No stridor, nasal flaring or accessory muscle use. Lungs are clear in all maldonado. MUSCULOSKELETAL: Tenderness to left deltoid area with palpation, full range of motion slight decrease in internal rotation. Equal strength bilaterally to deltoids and forearms. Slight tenderness to left posterior mid ribs and lateral aspect of left ribs. Normal gait and coordination. Equal tone and mass bilaterally. No spinal tenderness or deformities. No bruising or lacerations. EXTREMITIES: CMS intact. No pedal edema. SKIN: Warm, dry, soft, appropriate color for ethnicity. No lesions, rashes, or wounds. NEURO: Alert and Oriented X 3. No sensory deficits. PSYCH: Appropriate affect and mood. <Toño Johnson DO - Last Filed: 12/27/19 15:01> Initial Vital Signs Initial Vital Signs: Vital Signs Temperature 97.8 F 12/27/19 12:26 Pulse Rate 60 12/27/19 12:26 Respiratory Rate 16 12/27/19 12:26 Blood Pressure 166/86 H 12/27/19 12:26 Pulse Oximetry 96 12/27/19 12:26 Scores <MARIAH Figueroa - Last Filed: 12/27/19 14:51> Nexus Score for C-Spine Focal Neurologic deficit present: No Midline spinal tenderness present: No Altered level of conciousness present: No Intoxication present: No Distracting Injury Present: No Nexus Criteria for C-spine: 0 Course <MARIAH Figueroa - Last Filed: 12/27/19 14:51> Orders Ordered: ED Orders 12/27/19 12:32 XR ribs LT min 3V w CXR1V Stat XR shoulder LT min 2V Stat Vital Signs Vital signs: Vital Signs - 8 hr 12/27/19 12:26 12/27/19 12:33 Temperature 97.8 F Pulse Rate 60 Pulse Rate [Left Radial] 60 Respiratory Rate 16 Blood Pressure 166/86 H Pulse Oximetry 96 <Toño Johnson DO - Last Filed: 12/27/19 15:01> Orders Ordered: ED Orders 12/27/19 12:32 XR ribs LT min 3V w CXR1V Stat XR shoulder LT min 2V Stat Vital Signs Vital signs: Vital Signs - 8 hr 12/27/19 12:26 12/27/19 12:33 Temperature 97.8 F Pulse Rate 60 Pulse Rate [Left Radial] 60 Respiratory Rate 16 Blood Pressure 166/86 H Pulse Oximetry 96 MDM - Extremity Injury (Upper) <MARIAH Figueroa - Last Filed: 12/27/19 14:51> Medical Records Attestation: I reviewed the patient's medical records. Lab Data Attestation: I reviewed the patient's lab results. Imaging Data Extremity x-ray #1: Radiologist's Impression: [address] [address] XRay Report Signed Patient: Roosevelt Santana RMR#: [id number] : [id number]:[id number] Age/Sex: 79 / MDate of Service: 12/27/19 Loc: ED Accession Number: [id number] Procedure: XR shoulder LT min 2V Ordering Provider: Lory Moreira PROCEDURE: XR SHOULDER LT MIN 2V INDICATIONS: L shoulder pain post fall TECHNIQUE: 3 views of the shoulder were acquired. COMPARISON: [facility], , SHOULDER MINIMUM 2 VIEW LEFT, 02/20/2017, 18:19. FINDINGS: Bones: No fractures or dislocations. No suspicious bony lesions. Visualized ribs appear intact. Mild/moderate left shoulder joint degeneration. Soft tissues: No suspicious soft tissue calcifications. IMPRESSION: No fracture identified. If the patient's pain or other symptoms persist, consider further evaluation with MRI Dictated by: Omar Ruby M.D. on 12/27/2019 at 12:55 Approved by: Omar Ruby M.D. on 12/27/2019 at 12:56 Chest x-ray: Radiologist's Impression: [place] [address] XRay Report Signed Patient: Roosevelt Santana RMR#: [id number] : [id number]:[id number] Age/Sex: 79 / MDate of Service: 12/27/19 Loc: ED Accession Number: [id number] Procedure: XR ribs LT min 3V w CXR1V Ordering Provider: Lory Moreira PROCEDURE: XR RIBS LT MIN 3V W CXR1V INDICATIONS: L mid/lateral rib pain post fall TECHNIQUE: 2 views of the left ribs were acquired, along with a single view chest. COMPARISON: None. FINDINGS: Surgical changes and devices: None. Bones and chest wall: No fractures or dislocations. No suspicious bony lesions. Overlying soft tissues appear unremarkable. Lungs and pleura: No pleural effusions or pneumothorax. Lungs appear clear. Mediastinum: Mediastinal contours appear normal. Heart size is normal. IMPRESSION: No acute disease. No fracture seen. Dictated by: Omar Ruby M.D. on 12/27/2019 at 12:52 Approved by: Omar Ruby M.D. on 12/27/2019 at 12:54 MDM Narrative Medical decision making narrative: 79yo male presents emergency department complaining of left rib and shoulder pain post fall for the past week. No obvious trauma but exam reveals some tenderness. X-rays negative for any fractures, patient has good range of motion of shoulder with some decreased in internal rotation which may be related to his prior rotator cuff injury. No concerns for head injury or neck pain as nexus criteria is 0 and no head trauma. Less concern for concussion due to lack of symptoms such as reports of hitting his head, headache, vision changes, uncontrollable vomiting, or any other concerns. Patient was encouraged to follow up with his primary care provider in 1-2 weeks for further evaluation if symptoms continue. Discussed that it was less likely of x-rays missing a fracture due to 1 week since fall. Pain is clearly musculoskeletal in nature, no concern for cardiac etiology. Discussed benefits and wrist to muscle relaxers. Patient opted to obtain a prescription for a small amount of muscle relaxers to help if pain continues. Patient was counseled extensively to not drink or drive with these medications due to sedation affects, discussed sedation effects may also increased risk for falls. Patient was agreeable. Discharge Plan Departure Patient Disposition: Home Clinical Impression: Rib pain on left side Acute shoulder pain Qualifiers: Laterality: left Qualified Code(s): M25.512 - Pain in left shoulder Discharge Date/Time: 12/27/19 13:13 Instructions: DI for Rib Contusion, DI for Shoulder Pain Activity Restrictions/Additional Instructions: Thank you for entrusting me with your care today. As discussed, your x-rays are negative for any fractures. Your pain may be caused by contusion and muscle strains. I recommend gentle stretches and rest. You may use Tylenol as needed for pain. I have prescribed you a muscle relaxer, take this at bedtime if needed for muscle spasms. Do not drive with this medication or drink alcohol as this will make you drowsy. Please change positions slowly after taking this medication as it can cause a low blood pressure. Try to take 10 deep breaths 10 times a day to decrease your risk for pneumonia. Follow-up with her primary care provider in 1-2 weeks for further evaluation if symptoms continue. Return emergency department for any new or worsening symptoms such as severe pain, headaches, uncontrollable vomiting, high fevers, or any other concerns. Prescriptions: New cyclobenzaprine 5 mg tablet 5 mg PO BEDTIME PRN (Reason: muscle spasm) Qty: 10 RF: 0 No Action zinc 50 mg Tablet 50 mg PO DAILY Qty: 0 RF: 0 Midol 500-25 mg tablet 2 tab PO PRN PRN (Reason: Headache) Qty: 0 RF: 0 losartan 50 mg tablet 50 mg PO DAILY RF: 0 fluocinonide 0.05 % cream 1 applictn TOP DAILY PRN (Reason: psoriasis) RF: 0 Fiber Gummies 2 gram tablet,chewable 2 gram PO BEDTIME RF: 0 simvastatin 20 mg tablet 20 mg PO BEDTIME RF: 0 omeprazole 20 mg capsule,delayed release(DR/EC) 20 mg PO DAILY RF: 0 melatonin 5 mg capsule 5 mg PO .qhs PRN (Reason: Sleep) RF: 0 melatonin 10 mg Tablet 10 mg PO BEDTIME PRN (Reason: Sleep) RF: 0 sennosides [Senokot] 8.6 mg tablet 8.6 mg PO BEDTIME Qty: 10 RF: 1 docusate sodium [Colace] 100 mg capsule 100 mg PO BID Qty: 14 RF: 1 hydromorphone [Dilaudid] 2 mg tablet 2 mg PO Q4-6H PRN (Reason: pain) Qty: 20 RF: 0 Referrals: Trey Hooker MD [Primary Care Provider] - <Toño Johnson DO - Last Filed: 12/27/19 15:01> Cosign ED Attending Cosignature Attestation: Dr Johnson Co-Sign Statement: I was available for consultation during this patient's emergency department visit. This chart is signed by myself for administrative purposes only. I did not have direct contact with this patient during this visit. They were seen independently by the APC.
== END 2019-12-27 13:13 | disposition home or self-care (01) ==
PROVIDERS: Emergency Provider Nurse Practitioner; PCP Internal Medicine
DX: R07.81 Pleurodynia (principal); M25.512 Pain in left shoulder; W19.XXXA Unspecified fall, initial encounter
CPT/HCPCS: 71101; 73030; 99281; 99283

== ENCOUNTER → 2020-01-27 10:31 | Outpatient (CLI) | payer MEDICARE, OTHER, SELFPAY ==
[2018-09-21 18:48] VITALS: BMI 24.2
--- NOTE | 2020-01-27 | DI.US.S_ITS ---
PROCEDURE: US ABDOMEN LIMITED INDICATIONS: RIGHT INGUINAL PAIN 1 YEAR POST HERNIA REPAIR TECHNIQUE: Real-time focused scanning was performed of the inguinal region, with image documentation. COMPARISON: None. FINDINGS: There is an area of abnormal shadowing measuring 3.2 x 0.9 x 2.3 cm within the soft tissues in the region of the right inguinal canal, which may represent a recurrent inguinal hernia containing an air-filled loop of bowel versus postsurgical changes. No change is identified with Valsalva maneuver. IMPRESSION: Ill-defined area of shadowing in the region of the right inguinal canal could represent postsurgical changes, but is suspicious for a recurrent inguinal hernia containing an air-filled loop of bowel. A pelvic CT or MRI could be obtained for confirmation if clinically indicated. Dictated by: Brandon Haynes M.D. on 01/27/2020 at 12:25 Approved by: Brandon Haynes M.D. on 01/27/2020 at 12:31
== END ==
PROVIDERS: PCP Internal Medicine; Referring Provider Student in an Organized Health Care Education/Training Program; Visit Provider Student in an Organized Health Care Education/Training Program
DX: R10.31 Right lower quadrant pain (principal)
CPT/HCPCS: 76705

== ENCOUNTER → 2020-02-01 09:20 | Outpatient (CLI) | payer MEDICARE, OTHER, SELFPAY ==
[2018-09-21 18:48] VITALS: BMI 24.2
[2020-02-01 09:53] LABS: BUN Creatinine Ratio 13.2 (6-22); Blood Urea Nitrogen 12 mg/dL (9-20); Calcium 9.2 mg/dL (8.4-10.2); Carbon Dioxide 31 mmol/L (22-32); Chloride 100 mmol/L (98-107); Estimated Glomerular Filt Rate > 60.0 mL/min (>60); Glucose 108 mg/dL (80-110); HEMOLYSIS 18 (0-50); Potassium 4.4 mmol/L (3.4-5.1); Sodium 135 mmol/L (137-145)
--- NOTE | 2020-02-01 10:33 | DI.CT.S_ITS ---
PROCEDURE: CT ABDOMEN PELVIS W CON INDICATIONS: Unilateral inguinal hernia TECHNIQUE: After the administration of oral and intravenous contrast, 5 mm thick sections acquired from the diaphragms to the symphysis. 5 mm thick coronal and sagittal reformats were performed. For radiation dose reduction, the following was used: automated exposure control, adjustment of mA and/or kV according to patient size. COMPARISON: [facility], , PELVIS WITHOUT CONTRAST, 05/22/2010, 11:41. FINDINGS: Image quality: Excellent. ABDOMEN: Lung bases: Lung bases are clear. Emphysematous change. Heart size is normal. Solid organs: Liver is normal in size and enhancement. Gallbladder is unremarkable . Biliary system is non-dilated. Pancreas enhances normally. Spleen is normal in size and enhancement. No adrenal nodules. Kidneys are normal in size and enhancement, without hydronephrosis. A cystic lesion at the superior pole of the right kidney measuring 1.7 x 1.6 cm, (2/), 28 Hounsfield units. Simple cyst at the mid pole the right kidney. Peritoneum and bowel: Stomach, small bowel, and colon loops are normal in caliber and wall thickness. Increased stool in the colon. Diverticulosis. Normal appendix. No free fluid or air. Nodes and vessels: No retroperitoneal or mesenteric adenopathy. Aorta and inferior vena cava are normal in caliber. Miscellaneous: No ventral hernias. PELVIS: Genitourinary: Bladder wall thickness is normal. Miscellaneous: No recurrent inguinal hernia. There is irregular density at the right inguinal canal measuring 2.7 cm and approximately 20 Hounsfield units. This most likely represents postsurgical change from a right inguinal hernia repair or a hernia plug/mesh. Adjacent loops of bowel are within normal limits. No adenopathy. Bones: No suspicious bony lesions. L5-S1 DDD. No vertebral body compression fractures. IMPRESSION: 1. Irregular density at the right inguinal canal is most compatible with postsurgical change from prior hernia repair. No recurrent hernia. 2. No bowel obstruction. 3. Incidental cystic lesion at the superior pole of the right kidney measuring 1.7 cm which is higher than fluid density. This can be further evaluated with renal ultrasound or more definitively with multiphase MRI or CT renal protocol. Dictated by: Geoffrey Urias M.D. on 02/01/2020 at 11:08 Approved by: Geoffrey Urias M.D. on 02/01/2020 at 11:23
== END ==
PROVIDERS: PCP Internal Medicine; Referring Provider Internal Medicine; Visit Provider Internal Medicine
DX: K40.90 Unilateral inguinal hernia, without obstruction or gangrene, not specified as recurrent (principal); N28.1 Cyst of kidney, acquired
CPT/HCPCS: 36415; 74177; 80048; Q9967

== ENCOUNTER → 2020-07-03 19:21 | Outpatient (ROUT) | payer MEDICARE, OTHER, SELFPAY ==
[2018-09-21 18:48] VITALS: BMI 24.2
[2020-07-03 19:54] LABS: Add Manual Diff / Slide Review NO; Basophils Absolute Auto 0 /uL (0-100); Basophils Percent Auto 0.3 % (0-2); Eosinophils Absolute Auto 100 /uL (0-450); Eosinophils Percent Auto 0.9 % (2-4); Hematocrit 44.6 % (41-53); Hemoglobin 14.7 g/dL (13.5-17.5); Lymphocytes Absolute Auto 900 /uL (1100-4500); Lymphocytes Percent Auto 11.9 % (25-40); Mean Corpuscular Hemoglobin 30.1 PG (26-34); Mean Corpuscular Volume 91.1 fL (80-100); Monocytes Absolute Auto 700 /uL (0-900); Monocytes Percent Auto 9.2 % (3-14); Neutrophils Absolute Auto 6000 /uL (1500-7000); Neutrophils Percent Auto 77.7 % (50-75); Platelet Count 252 X10^3/uL (150-400); Red Blood Cell Count 4.89 X10^6/uL (4.5-5.9); Red Cell Distribution Width 13.4 % (11.6-14.8); White Blood Cell Count 7.7 X10^3/uL (4.5-11.0)
[2020-07-03 20:21] LABS: Alanine Aminotransferase 17 IU/L (<50); Albumin Globulin Ratio 1.6 (1.0-2.8); Alkaline Phosphatase 72 U/L (38-126); Aspartate Aminotransferase 31 IU/L (17-59); Bilirubin Total 0.5 mg/dL (0.2-1.3); Blood Urea Nitrogen 16 mg/dL (9-20); Calcium 9.4 mg/dL (8.4-10.2); Carbon Dioxide 30 mmol/L (22-32); Chloride 97 mmol/L (98-107); Cholesterol 139 mg/dL (140-199); Estimated Glomerular Filt Rate > 60.0 mL/min (>60); Globulin 2.5 g/dL (1.7-4.1); Glucose 101 mg/dL (80-110); HDL Cholesterol 51 mg/dL (40-60); HEMOLYSIS 15 (0-50); LDL Cholesterol Calculated 61 mg/dL (<100); Potassium 4.6 mmol/L (3.4-5.1); Sodium 132 mmol/L (137-145); Total Protein 6.5 g/dL (6.3-8.2); Triglycerides 137 mg/dL (35-150)
== END ==
PROVIDERS: PCP Internal Medicine; Visit Provider Internal Medicine
DX: E78.00 Pure hypercholesterolemia, unspecified (principal); I10 Essential (primary) hypertension
CPT/HCPCS: 80053; 80061; 85025

== ENCOUNTER 2020-10-09 14:24 | Emergency (ER) | payer MEDICARE, OTHER, SELFPAY ==
[2018-09-21 18:48] VITALS: BMI 24.2
[2020-10-09 14:30] VITALS: BP 174/97; PULSE 61; RESP 20; TEMP 36.7; O2SAT 96
--- NOTE | 2020-10-09 14:35 | DI.RAD.S_ITS ---
PROCEDURE: XR THORACIC SPINE 3V INDICATIONS: midline pain/tenderness after fall 1 week ago TECHNIQUE: 3 views of the thoracic spine were acquired. COMPARISON: None. FINDINGS: Bones: No fractures or dislocations. No suspicious bony lesions. 12 pairs of ribs are noted, and appear intact where visualized. Soft tissues: No paravertebral stripe thickening. IMPRESSION: Mild degenerative osteoarthritic change at the endplates and also mild degenerative disc height reduction is seen at the midthoracic spine. No compression fracture. Dictated by: Vikas Castro M.D. on 10/09/2020 at 15:11 Approved by: Vikas Castro M.D. on 10/09/2020 at 15:11
--- NOTE | 2020-10-09 14:35 | DI.RAD.S_ITS ---
PROCEDURE: XR HIP W PEL IF DONE LT 2V INDICATIONS: fall 1 week ago, lt post hip pain TECHNIQUE: AP pelvis with lateral view(s) of the left hip(s). COMPARISON: [facility], , XR PELVIS 1-2V, 09/21/2018, 18:05. FINDINGS: Bones: No fractures or dislocations. Pelvic ring appears intact. No suspicious bony lesions. Moderate bilateral hip joint space periarticular osteophyte formation. Soft tissues: The visualized bowel gas pattern is normal. No suspicious soft tissue calcifications. IMPRESSION: Osteoarthritis. No acute fracture. No osseous lesion. If symptoms and/or clinical suspicion for pathology persist, further assessment with repeat, or advanced imaging (e.g., CT, MRI, or bone scan) may be helpful for further assessment. Dictated by: Angela Amor M.D. on 10/09/2020 at 15:01 Approved by: Angela Amor M.D. on 10/09/2020 at 15:02
[2020-10-09 16:03] VITALS: O2SAT 95
[2020-10-09 16:04] VITALS: BP 191/95; PULSE 61; O2SAT 95
--- NOTE | 2020-10-09 16:24 | PC.NURSE ---
patient states he was standing on his trailer tounge and slipped and fell. states he ended up under his trailer. reports lower back pain that helped with chiroprator adjustment. states it went out again last night and he came in to get xrays. difficult to get answers out of the paitnet. he continually states im just here for xrays, i dont need an exam. The process of how to get an xray explained to eddie. Patient informed he needs to wait for medical exam from a provider in order to have the appropriate xrays taken. Patient stated OK
--- NOTE | 2020-10-09 17:04 | PC.NURSE ---
Spoke with patient about the wait time for his visit. He was very eager to be seen and did not want to wait any longer. Reported to the nurse who spoke with him about the wait time and updated him.
--- NOTE | 2020-10-09 17:07 | PC.NURSE ---
Pt upset at wait. Reviewed triage system. Discussed how busy ED was. Pt continued to verbalize dissatisfaction. Discussed options which include waiting for doctor (updated wait @ 15-20 min) or leaving [facility]. Pt aware that he can leave at any point in time.
--- NOTE | 2020-10-09 17:24 | ED.BACK ---
HPI - Back Pain/Injury General Chief Complaint: Back Pain/Injury Stated Complaint: fell 1 week ago lower and middle back hurt Time Seen by Provider: 10/09/20 17:24 Source: patient Mode of arrival: Ambulatory Limitations: no limitations History of Present Illness HPI Narrative: Patient is a 80-year-old male who presents with thoracic pain and some left hip pain after falling 1 week ago. He says he tripped and fell landing on his back and left hip. He has been ambulating but it does hurt still and he wants to make sure nothing is broken. He denies numbness tingling or weakness. No head injury. He has been taking Midol for pain. He says it is just below his shoulder blades midline he denies any chest pain or shortness of breath. Is tender to palpation. MD Complaint: back pain and fall Onset (ago): week(s) (1) Duration: constant Location: thoracic spine Severity: mild Related Data Home Medications Medication Instructions Recorded Confirmed zinc 50 mg PO DAILY #0 07/01/11 10/06/18 Midol 2 tab PO PRN PRN #0 02/20/17 09/21/18 fluocinonide 0.05 % topical cream 1 applictn TOP DAILY PRN gram 09/08/18 10/06/18 inulin 2 gram chewable tablet 2 gram PO BEDTIME tab 09/08/18 10/06/18 losartan 50 mg tablet 50 mg PO DAILY 09/08/18 10/06/18 melatonin 5 mg capsule 5 mg PO .qhs PRN cap 09/08/18 09/21/18 omeprazole 20 mg capsule,delayed 20 mg PO DAILY 09/08/18 10/06/18 release simvastatin 20 mg tablet 20 mg PO BEDTIME 09/08/18 10/06/18 melatonin 10 mg PO BEDTIME PRN 09/21/18 10/06/18 Previous Rx's Medication Instructions Recorded docusate sodium [Colace] 100 mg PO BID #14 cap 09/21/18 hydromorphone [Dilaudid] 2 mg PO Q4-6H PRN #20 tab 09/21/18 sennosides [Senokot] 8.6 mg PO BEDTIME #10 tab 09/21/18 cyclobenzaprine 5 mg PO BEDTIME PRN #10 tab 12/27/19 Allergies Allergy/AdvReac Type Severity Reaction Status Date / Time codeine [CODEINE] Allergy Mild Nausea Verified 09/21/18 09:58 Antihistamines - Alkylamine Allergy Unknown Testicular Verified 09/21/18 09:58 [ANTIHISTAMINES - ALKYLAMINE] pain Antihistamines - Ethanolamine Allergy Unknown Testicular Verified 09/21/18 09:58 [ANTIHISTAMINES - pain ETHANOLAMINE] Antihistamines - Allergy Unknown Testicular Verified 09/21/18 09:58 Ethylenediamine pain [ANTIHISTAMINES - ETHYLENEDIAMINE] Antihistamines - Piperazine Allergy Unknown Testicular Verified 09/21/18 09:58 [ANTIHISTAMINES - PIPERAZINE] pain erythromycin base AdvReac Mild NAUSEA, Verified 09/21/18 09:58 [ERYTHROMYCIN BASE] rash morphine [MORPHINE] AdvReac Mild Nausea Verified 09/21/18 09:58 lisinopril AdvReac Cough Verified 09/21/18 09:58 Review of Systems Review of Systems ROS Unobtainable: All systems reviewed & are unremarkable except as noted in HPI and below Constitutional Constitutional: Denies chills, Denies fever(s), Denies lethargy and Denies weakness ENT Ears, Nose, Mouth, and Throat: Denies vertigo Cardiovascular Cardiovascular: Denies chest pain, Denies syncope, Denies irregular heart rhythm, Denies lightheadedness, Denies palpitations, Denies dyspnea, Denies dyspnea on exertion and Denies orthopnea Respiratory Respiratory: Denies cough, Denies dyspnea, Denies dyspnea on exertion and Denies wheezing Gastrointestinal Gastrointestinal: Denies abdominal pain, Denies change in bowel habits, Denies diarrhea, Denies nausea and Denies vomiting Musculoskeletal Musculoskeletal: Reports as per HPI, Reports back pain and Reports arthralgias (left hip) Integumentary/Breasts Skin/Breast: Denies pruritus, Denies erythema, Denies rash and Denies wounds Neurologic Neurologic: Denies vertigo, Denies syncope and Denies weakness Endocrine Endocrine: Denies palpitations Allergic/Immunologic Allergic/Immunologic: Denies wheezing Patient History Medical History Foot fracture, right Gastroesophageal reflux disease Hyperlipidemia Hypertension Restless legs syndrome Surgical History History of colonoscopy Hx of right inguinal hernia repair Status post excision of lipoma Family History Other Diabetes mellitus Social History marital status: household members: spouse occupational status: previously employed Smoking Status: Never smoker alcohol intake: current substance use type: does not use Smoking Status: Never smoker alcohol intake frequency: holidays/special occasions only Substance Use Type: does not use Exam Initial Vital Signs Initial Vital Signs: Vital Signs Temperature 98.1 F 10/09/20 14:30 Pulse Rate 61 10/09/20 14:30 Respiratory Rate 20 10/09/20 14:30 Blood Pressure 174/97 H 10/09/20 14:30 Pulse Oximetry 96 10/09/20 14:30 GENERAL: Alert pleasant 80-year-old male and in no acute distress. HEENT: Head atraumatic,EOMI, pupils reactive, face symmetric, moist mucous membranes CARDIOVASCULAR: Regular rate and rhythm without murmurs, rubs or gallops. RESPIRATORY: Breath sounds equal bilaterally, no wheezes rales or rhonchi. ABDOMEN: Soft, nontender. Normoactive bowel sounds all 4 quadrants. No guarding or rebound. BACK: Tender to palpation midline T6 to T7 no step-off no sign of trauma EXTREMITIES: Normal range of motion, no clubbing or edema. Neurovascularly intact. Left hip minimally tenderness to palpation ambulatory good internal external rotation neurovascularly intact NEUROLOGICAL: Alert and oriented x4.Normal gait and speech. SKIN: Warm, dry, no laceration, no petechiae, no rashes or lesions. Course Orders Ordered: ED Orders 10/09/20 14:35 XR hip w pel if done LT 2V Stat XR thoracic spine 3V Stat Vital Signs Vital signs: Vital Signs - 8 hr 10/09/20 14:30 10/09/20 16:03 10/09/20 16:04 Temperature 98.1 F Pulse Rate 61 61 Respiratory Rate 20 Blood Pressure 174/97 H 191/95 H Pulse Oximetry 96 95 95 MDM - Back Pain/Injury Imaging Data Extremity x-ray #1: Radiologist's Impression: PROCEDURE: XR HIP W PEL IF DONE LT 2V INDICATIONS: fall 1 week ago, lt post hip pain TECHNIQUE: AP pelvis with lateral view(s) of the left hip(s). COMPARISON: [facility], CR, XR PELVIS 1-2V, 09/21/2018, 18:05. FINDINGS: Bones: No fractures or dislocations. Pelvic ring appears intact. No suspicious bony lesions. Moderate bilateral hip joint space periarticular osteophyte formation. Soft tissues: The visualized bowel gas pattern is normal. No suspicious soft tissue calcifications. IMPRESSION: Osteoarthritis. No acute fracture. No osseous lesion. If symptoms and/or clinical suspicion for pathology persist, further assessment with repeat, or advanced imaging (e.g., CT, MRI, or bone scan) may be helpful for further assessment. Dictated by: Angela Amor M.D. on 10/09/2020 at 15:01 Extremity x-ray #2: Radiologist's Impression: PROCEDURE: XR THORACIC SPINE 3V INDICATIONS: midline pain/tenderness after fall 1 week ago TECHNIQUE: 3 views of the thoracic spine were acquired. COMPARISON: None. FINDINGS: Bones: No fractures or dislocations. No suspicious bony lesions. 12 pairs of ribs are noted, and appear intact where visualized. Soft tissues: No paravertebral stripe thickening. IMPRESSION: Mild degenerative osteoarthritic change at the endplates and also mild degenerative disc height reduction is seen at the midthoracic spine. No compression fracture. Dictated by: Vikas Castro M.D. on 10/09/2020 at 15:11 MDM Narrative Medical decision making narrative: The patient is tender to palpation x-ray is negative he is ambulatory. At this time likely contusion. Discharge Plan Departure Patient Disposition: Home Clinical Impression: Back pain, thoracic Qualifiers: Chronicity: acute Back pain laterality: midline Qualified Code(s): M54.6 - Pain in thoracic spine Instructions: Thoracic Back Pain Activity Restrictions/Additional Instructions: *You have been diagnosed with back pain *What to do: At this time you have no broken bones. Recommend pain control, heat or Ice *Continue to take medications as directed Tylenol 650 mg every 4-6 hours if needed for [id number] pain *Follow up with your primary care provider in 2-3 days *Return to ER if you should have increasing pain, numbness tingling or weakness or any new, worsening or concerning symptoms Prescriptions: No Action zinc 50 mg Tablet 50 mg PO DAILY Qty: 0 RF: 0 Midol 500-25 mg tablet 2 tab PO PRN PRN (Reason: Headache) Qty: 0 RF: 0 losartan 50 mg tablet 50 mg PO DAILY RF: 0 fluocinonide 0.05 % cream 1 applictn TOP DAILY PRN (Reason: psoriasis) RF: 0 Fiber Gummies 2 gram tablet,chewable 2 gram PO BEDTIME RF: 0 simvastatin 20 mg tablet 20 mg PO BEDTIME RF: 0 omeprazole 20 mg capsule,delayed release(DR/EC) 20 mg PO DAILY RF: 0 melatonin 5 mg capsule 5 mg PO .qhs PRN (Reason: Sleep) RF: 0 melatonin 10 mg Tablet 10 mg PO BEDTIME PRN (Reason: Sleep) RF: 0 sennosides [Senokot] 8.6 mg tablet 8.6 mg PO BEDTIME Qty: 10 RF: 1 docusate sodium [Colace] 100 mg capsule 100 mg PO BID Qty: 14 RF: 1 hydromorphone [Dilaudid] 2 mg tablet 2 mg PO Q4-6H PRN (Reason: pain) Qty: 20 RF: 0 cyclobenzaprine 5 mg tablet 5 mg PO BEDTIME PRN (Reason: muscle spasm) Qty: 10 RF: 0 Referrals: Trey Hooker MD [Primary Care Provider] -
== END 2020-10-09 17:38 | disposition home or self-care (01) ==
PROVIDERS: Emergency Provider Emergency Medicine; PCP Internal Medicine
DX: M54.6 Pain in thoracic spine (principal); M25.552 Pain in left hip; W18.30XA Fall on same level, unspecified, initial encounter
CPT/HCPCS: 72072; 73502; 99283; 99284

== ENCOUNTER → 2021-05-22 10:53 | Outpatient (CLI) | payer MEDICARE, OTHER, SELFPAY ==
[2018-09-21 18:48] VITALS: BMI 24.2
--- NOTE | 2021-05-22 10:54 | DI.RAD.S_ITS ---
PROCEDURE: XR LUMBAR SPINE MIN 4V INDICATIONS: L1 fx TECHNIQUE: 4 views of the lumbar spine were acquired, including bilateral oblique views. COMPARISON: [facility], CT, CT THORACIC SPINE WITHOUT CONTRAST, 11/01/2020, 16:42. [facility], CT, CT LUMBAR SPINE WITHOUT CONTRAST, 11/01/2020, 16:42. [facility], CR, XR THORACIC SPINE 2V, 05/22/2021, 10:56. [facility], CR, L-SPINE 2-3 VIEWS, 07/26/2016, 18:08. FINDINGS: Bones: This patient has transitional lumbar anatomy. For the purposes of this examination, the level with the last well-developed disc space is considered to be S1-S2. This numbering scheme is chosen to remain consistent with the prior reports from 11/01/2020. By this numbering scheme, the S1 level is transitional and highly lumbarized on the left. There is a prominent compression deformity seen involving the L1 level, with 80-90% loss height anteriorly. This has progressed compared to 11/01/2020. There is 3-4 mm posterior displacement of fracture fragments seen along the superior aspect of L1. No acute fractures are seen. [id number]-[id number] disc space narrowing is seen at L5-S1. Lower lumbar spine facet arthropathy is seen. Soft tissues: Overlying bowel gas pattern is normal. No suspicious soft tissue calcifications. Oblique images: No pars defects. IMPRESSION: Progression of loss of vertebral body height at L1, now with 80-90% loss of height anteriorly. Dictated by: Waldo Pedraza M.D. on 05/22/2021 at 10:41 Approved by: Waldo Pedraza M.D. on 05/22/2021 at 10:45
--- NOTE | 2021-05-22 10:54 | DI.RAD.S_ITS ---
PROCEDURE: XR THORACIC SPINE 2V INDICATIONS: T3, T5 and T12 Fx fall from roof TECHNIQUE: 2 views of the thoracic spine were acquired. COMPARISON: [facility], CR, XR LUMBAR SPINE MIN 4V, 05/22/2021, 10:56. [facility], CT, CT LUMBAR SPINE WITHOUT CONTRAST, 11/01/2020, 16:42. [facility], CT, CT THORACIC SPINE WITHOUT CONTRAST, 11/01/2020, 16:42. [facility], CR, XR THORACIC SPINE 3V, 10/09/2020, 14:36. FINDINGS: Bones: There is again seen an L1 anterior wedge deformity, with 80-90% loss height anteriorly. This fracture has progressed over time. Minimal anterior wedge deformities are seen at T3 and T5, which are similar to 11/01/2020. No acute fractures or dislocations. No suspicious bony lesions. 12 pairs of ribs are noted, and appear intact where visualized. Minimal dextroconvex thoracolumbar scoliotic curvature is seen. Soft tissues: No paravertebral stripe thickening. The cardiac contours are within normal limits. The aorta demonstrates calcification and tortuosity. IMPRESSION: Progression of the L1 compression deformity, now with 80-90% loss of height anteriorly. Stable mild anterior wedge deformities at T3 and T5. Dictated by: Waldo Pedraza M.D. on 05/22/2021 at 10:45 Approved by: Waldo Pedraza M.D. on 05/22/2021 at 10:47
== END ==
PROVIDERS: PCP Internal Medicine; Referring Provider Physical Medicine & Rehabilitation; Visit Provider Physical Medicine & Rehabilitation
DX: M54.9 Dorsalgia, unspecified (principal); S32.010A Wedge compression fracture of first lumbar vertebra, initial encounter for closed fracture; S22.080A Wedge compression fracture of T11-T12 vertebra, initial encounter for closed fracture; M48.07 Spinal stenosis, lumbosacral region; M47.27 Other spondylosis with radiculopathy, lumbosacral region
CPT/HCPCS: 72070; 72110; 99215

== ENCOUNTER → 2021-05-28 15:16 | Outpatient (CLI) | payer MEDICARE, OTHER, SELFPAY ==
[2018-09-21 18:48] VITALS: BMI 24.2
--- NOTE | 2021-05-28 15:19 | DI.MRI.S_ITS ---
PROCEDURE: MR LUMBAR SPINE WO CON INDICATIONS: T12 and L1 compression fracture status post fall from ladder TECHNIQUE: Noncontrast sagittal T1 spin echo and T2 fast echo, sagittal STIR, axial T1 and T2 fast spin echo through the lumbar spine. In cases with scoliosis, additional coronal T2 fast spin echo may be performed. COMPARISON: [facility], CR, XR LUMBAR SPINE MIN 4V, 05/22/2021, 10:56. FINDINGS: Image quality: Excellent. Alignment and Curvature: There is normal bony alignment. Bones: Loss of height noted in the T12 vertebral body compatible with compression fracture. There is increased T2 signal within the marrow space of the T12 vertebral body indicating compression fractures acute/subacute. T12 compression fracture results and approximately 80-90% loss of normal anterior vertebral body height. There is mildly retropulsed fragment associated with the T12 compression fracture which causes mild narrowing of the central canal. No significant kyphosis associated with the T12 compression fracture. Spinal Cord: Conus medullaris terminates at the T12 level. There is a 7 millimeter intradural, extramedullary nodule associated with the distal cauda equina at the level of the L4 vertebral body. Visualized cord demonstrates normal signal and size. Paraspinous Soft Tissues: No paravertebral masses. T12-L1: Loss of disc signal and slight loss of disc height. Mild, diffuse disc bulge. Mild narrowing of the central canal. Mild bilateral neural foraminal narrowing. No neural compression. L1-L2: Loss of disc signal. Mild, diffuse disc bulge. Mild bilateral facet hypertrophy. Mild narrowing of the central canal. Mild bilateral neural foraminal narrowing. No neural compression. L2-L3: Loss of disc signal. Mild, diffuse disc bulge. Mild bilateral facet hypertrophy. Mild narrowing of the central canal. Mild bilateral neural foraminal narrowing. No neural compression. L3-L4: Loss of disc signal. Mild, diffuse disc bulge. [id number] bilateral facet hypertrophy. Moderate ligamentum flavum hypertrophy. Moderate narrowing of the central canal. Moderate right and [id number] left neural foraminal narrowing. No neural compression. L4-L5: Loss of disc signal and height. Moderate, diffuse disc bulge. Mild bilateral facet hypertrophy. Mild ligamentum flavum hypertrophy. Moderate narrowing of the central canal. Severe right and moderate left neural foraminal narrowing with compression of the exiting right L4 nerve root. L5-S1: Disc has a normal appearance. Mild bilateral facet hypertrophy. No central stenosis. No neural foraminal narrowing. No neural compression. IMPRESSION: 1. Acute/subacute T12 compression fracture. 2. 7 millimeter intradural, extramedullary nodule so she aided with the cauda equina at the level of the L4 vertebral body. Finding may represent meningioma or schwannoma, however other etiologies including dropped metastatic lesion cannot be differentiated without follow-up imaging. Recommend repeat MRI of the lumbar spine with and without contrast in 3 months to assess for stability. 3. Multilevel degenerative disc disease. 4. Multilevel facet arthropathy. 5. No severe central canal narrowing. 6. Severe right L4-L5 neural foraminal narrowing with compression of the exiting right L4 nerve root. Dictated by: Stefania Velasquez MD, PhD on 05/28/2021 at 16:59 Approved by: Stefania Velasquez MD, PhD on 05/28/2021 at 17:25
== END ==
PROVIDERS: PCP Internal Medicine; Referring Provider Physical Medicine & Rehabilitation; Visit Provider Physical Medicine & Rehabilitation
DX: S22.089A Unspecified fracture of T11-T12 vertebra, initial encounter for closed fracture (principal); M51.16 Intervertebral disc disorders with radiculopathy, lumbar region; M47.26 Other spondylosis with radiculopathy, lumbar region; M47.27 Other spondylosis with radiculopathy, lumbosacral region; M48.061 Spinal stenosis, lumbar region without neurogenic claudication; W11.XXXA Fall on and from ladder, initial encounter
CPT/HCPCS: 72148

== ENCOUNTER → 2021-11-07 11:01 | Outpatient (CLI) | payer MEDICARE, OTHER, SELFPAY ==
[2018-09-21 18:48] VITALS: BMI 24.2
--- NOTE | 2021-11-07 11:03 | DI.MRI.S_ITS ---
PROCEDURE: MR LUMBAR SPINE WO/W CON INDICATIONS: L4 lesion f/u TECHNIQUE: Noncontrast sagittal T1 spin echo and T2 fast spin echo, sagittal STIR, axial T1 and T2 fast spin echo through the lumbar spine. In cases with scoliosis, additional coronal T2 fast spin echo may be performed. After the administration of contrast, sagittal and axial T1 spin echo with fat saturation through the lumbar spine. COMPARISON: [facility], MR, MR LUMBAR SPINE WO CON, 05/28/2021, 15:31. FINDINGS: Image quality: Excellent. Alignment and curvature: There is normal bony alignment. Marrow: Subacute T12 wedge-shaped compression fractures again noted with 80 90% anterior height loss and small retropulsed fracture fragment results in mild central stenosis. Marrow edema has improved but not completely resolved. Anterior enhancing granulation tissue noted. Spinal cord: Conus medullaris terminates at the T12-L1 level. Visualized spinal cord demonstrates normal signal, without suspicious enhancement. In again noted, there is an intradural extramedullary 7 mm nodule at the L4 level with mild enhancement, unchanged from the prior Paraspinous soft tissues: No paravertebral masses or abnormal enhancement. T12-L1: Disc height is preserved. Mild circumferential disc bulge present without central stenosis. Mild foraminal stenosis. L1-L2: Disc height is preserved. Circumferential disc bulge and hypertrophic facet joints present. Mild central and bilateral foraminal stenosis. L2-L3: Disc height is preserved. Mild circumferential disc bulge and hypertrophic facet joints results in mild central and mild bilateral foraminal stenosis. L3-L4: Circumferential disc bulge, hypertrophic facet joints and ligamentum flavum laxity combined result in moderate central stenosis, stable from the prior exam. Moderate bilateral foraminal stenosis. L4-L5: Disc height loss and circumferential disc bulge combines with hypertrophic facet joints and ligamentum flavum laxity to result in moderate central stenosis. Severe right and moderate left foraminal stenosis present. L5-S1: Disc height is preserved. No central or foraminal stenosis. IMPRESSION: 1. Stable intradural extramedullary enhancing nodule at the L4 level. Differential would include meningioma and focal nerve sheath tumor. Nevertheless, 6-12 month MRI lumbar spine follow-up advised to assure stability. 2. Subacute T12 compression fracture shows resolving marrow edema. 3. Multilevel degenerative disc disease and arthropathy results in varying degrees of central and foraminal stenosis including severe right L4-5 foraminal stenosis, stable Approved by: Braden Dixon M.D. on 11/07/2021 at 12:35
== END ==
PROVIDERS: PCP Internal Medicine; Referring Provider Physical Medicine & Rehabilitation; Visit Provider Physical Medicine & Rehabilitation
DX: S22.080A Wedge compression fracture of T11-T12 vertebra, initial encounter for closed fracture (principal); S32.010A Wedge compression fracture of first lumbar vertebra, initial encounter for closed fracture; G95.9 Disease of spinal cord, unspecified; M51.36 Other intervertebral disc degeneration, lumbar region; M47.816 Spondylosis without myelopathy or radiculopathy, lumbar region; M48.061 Spinal stenosis, lumbar region without neurogenic claudication
CPT/HCPCS: 72158

== ENCOUNTER → 2021-11-11 16:38 | Outpatient (CLI) | payer MEDICARE, OTHER, SELFPAY ==
[2018-09-21 18:48] VITALS: BMI 24.2
--- NOTE | 2021-11-11 16:42 | DI.RAD.S_ITS ---
PROCEDURE: XR SHOULDER RT MIN 2V INDICATIONS: Right shoulder pain status post fall TECHNIQUE: 3 views of the shoulder were acquired. COMPARISON: [facility], CR, XR SHOULDER LT MIN 2V, 12/27/2019, 11:32. FINDINGS: Bones: No fractures or dislocations. No suspicious bony lesions. Visualized ribs appear intact. Soft tissues: No suspicious soft tissue calcifications. IMPRESSION: No acute osseous abnormality. If the patient's pain persists, consider magnetic resonance imaging. Dictated by: Storm Sanches M.D. on 11/11/2021 at 17:11 Approved by: Storm Sanches M.D. on 11/11/2021 at 17:12
== END ==
PROVIDERS: Referring Provider Physical Medicine & Rehabilitation; Visit Provider Physical Medicine & Rehabilitation
DX: M75.41 Impingement syndrome of right shoulder (principal); S32.010A Wedge compression fracture of first lumbar vertebra, initial encounter for closed fracture; S22.080A Wedge compression fracture of T11-T12 vertebra, initial encounter for closed fracture; C79.9 Secondary malignant neoplasm of unspecified site
CPT/HCPCS: 73030; 99214

== ENCOUNTER → 2022-03-13 13:59 | Outpatient (CLI) | payer MEDICARE, OTHER, SELFPAY ==
[2018-09-21 18:48] VITALS: BMI 24.2
[2022-03-13 15:16] LABS: Add Manual Diff / Slide Review NO; Basophils Absolute Auto 0 /uL (0-100); Basophils Percent Auto 0.8 % (0-2); Eosinophils Absolute Auto 100 /uL (0-450); Hematocrit 44.6 % (41-53); Hemoglobin 14.8 g/dL (13.5-17.5); Lymphocytes Absolute Auto 800 /uL (1100-4500); Lymphocytes Percent Auto 13.8 % (25-40); Mean Corpuscular HGB Conc 33.1 % (30-36); Mean Corpuscular Hemoglobin 29.7 PG (26-34); Mean Corpuscular Volume 89.8 fL (80-100); Monocytes Absolute Auto 600 /uL (0-900); Monocytes Percent Auto 9.1 % (3-14); Neutrophils Absolute Auto 4600 /uL (1500-7000); Neutrophils Percent Auto 75.3 % (50-75); Platelet Count 248 X10^3/uL (150-400); Red Blood Cell Count 4.97 X10^6/uL (4.5-5.9); Red Cell Distribution Width 13.9 % (11.6-14.8); White Blood Cell Count 6.1 X10^3/uL (4.5-11.0)
[2022-03-13 16:15] LABS: Alanine Aminotransferase 20 IU/L (<50); Albumin Globulin Ratio 1.4 (1.0-2.8); Alkaline Phosphatase 75 U/L (38-126); Aspartate Aminotransferase 28 IU/L (17-59); BUN Creatinine Ratio 11.6 (6-22); Bilirubin Total 0.6 mg/dL (0.2-1.3); Blood Urea Nitrogen 10 mg/dL (9-20); Calcium 8.6 mg/dL (8.4-10.2); Carbon Dioxide 28 mmol/L (22-32); Chloride 101 mmol/L (98-107); Cholesterol 151 mg/dL (140-199); Estimated Glomerular Filt Rate > 60 mL/min (>60); Globulin 2.8 g/dL (1.7-4.1); Glucose 115 mg/dL (80-110); HDL Cholesterol 45 mg/dL (40-60); HEMOLYSIS < 15 (0-50); LDL Cholesterol Calculated 84 mg/dL (<100); Potassium 4.1 mmol/L (3.4-5.1); Sodium 136 mmol/L (137-145); Total Protein 6.8 g/dL (6.3-8.2); Triglycerides 110 mg/dL (35-150)
[2022-03-13 16:37] LABS: TSH w/ Reflex to FT4 0.65 uIU/mL (0.47-4.68)
== END ==
PROVIDERS: PCP Family Medicine; Referring Provider Family Medicine; Visit Provider Family Medicine
DX: E78.5 Hyperlipidemia, unspecified (principal); I10 Essential (primary) hypertension; K21.9 Gastro-esophageal reflux disease without esophagitis
CPT/HCPCS: 36415; 80053; 80061; 84443; 85025

== ENCOUNTER 2022-05-09 14:35 | Emergency (ER) | payer MEDICARE, OTHER, SELFPAY ==
[2018-09-21 18:48] VITALS: BMI 24.2
[2022-05-09 14:41] VITALS: BP 183/93; PULSE 77; RESP 17; TEMP 36.6; O2SAT 98; BMI 26.4
[2022-05-09 15:20] LABS: Alanine Aminotransferase 22 IU/L (<50); Albumin 4.2 g/dL (3.5-5.0); Albumin Globulin Ratio 1.4 (1.0-2.8); Alkaline Phosphatase 75 U/L (38-126); Aspartate Aminotransferase 27 IU/L (17-59); BUN Creatinine Ratio 13.1 (6-22); Bilirubin Total 0.7 mg/dL (0.2-1.3); Blood Urea Nitrogen 13 mg/dL (9-20); Calcium 8.8 mg/dL (8.4-10.2); Carbon Dioxide 27 mmol/L (22-32); Chloride 102 mmol/L (98-107); Estimated Glomerular Filt Rate > 60 mL/min (>60); Globulin 2.9 g/dL (1.7-4.1); Glucose 118 mg/dL (80-110); HEMOLYSIS 15 (0-50); Potassium 4.1 mmol/L (3.4-5.1); Sodium 137 mmol/L (137-145); Total Protein 7.1 g/dL (6.3-8.2)
[2022-05-09 15:24] LABS: Add Manual Diff / Slide Review NO; Basophils Absolute Auto 0 /uL (0-100); Basophils Percent Auto 0.5 % (0-2); Eosinophils Absolute Auto 100 /uL (0-450); Eosinophils Percent Auto 1.6 % (2-4); Hematocrit 43.6 % (41-53); Hemoglobin 14.9 g/dL (13.5-17.5); Lymphocytes Absolute Auto 900 /uL (1100-4500); Lymphocytes Percent Auto 12.3 % (25-40); Mean Corpuscular HGB Conc 34.2 % (30-36); Mean Corpuscular Hemoglobin 30.5 PG (26-34); Mean Corpuscular Volume 89.1 fL (80-100); Monocytes Absolute Auto 800 /uL (0-900); Monocytes Percent Auto 10.5 % (3-14); Neutrophils Absolute Auto 5800 /uL (1500-7000); Neutrophils Percent Auto 75.1 % (50-75); Platelet Count 243 X10^3/uL (150-400); Red Cell Distribution Width 14.1 % (11.6-14.8); White Blood Cell Count 7.7 X10^3/uL (4.5-11.0)
[2022-05-09 15:34] VITALS: O2SAT 97
[2022-05-09 15:35] VITALS: BP 132/82; PULSE 50; O2SAT 95
--- NOTE | 2022-05-09 15:35 | ED.GIBLEED ---
HPI - GI Bleed General Chief complaint: GI Bleed Stated complaint: Rectum bleeding Time Seen by Provider: 05/09/22 15:07 Source: patient Mode of arrival: Ambulatory History of Present Illness HPI Narrative: Patient is a 81-year-old male history of hypertension who presents with rectal bleeding. He said this morning he had a bowel movement and then has had rectal bleeding that leaking ever since. It is bright red. He had a nonpainful bowel movement. He has absolutely no abdominal pain. He is not dizzy or lightheaded. No chest pain or palpitations. Related Data Home Medications Medication Instructions Recorded Confirmed zinc 50 mg tablet 50 mg PO DAILY ##0 07/01/11 03/13/22 acetaminophen-pamabrom 500 mg-25 2 tab PO PRN PRN Headache ##0 02/20/17 03/13/22 mg tablet (Midol) fluocinonide 0.05 % topical cream 1 applictn topical DAILY PRN 09/08/18 03/13/22 psoriasis inulin 2 gram chewable tablet 2 gram PO BEDTIME 09/08/18 03/13/22 (Fiber Gummies) melatonin 10 mg tablet 10 mg PO BEDTIME PRN Sleep 09/21/18 03/13/22 calcium carbonate 600 mg calcium 600 mg PO BID 03/13/22 03/13/22 (1,500 mg) tablet (Calcium) cholecalciferol (vitamin D3) 125 125 mcg PO BID 03/13/22 03/13/22 mcg (5,000 unit) tablet (Vitamin D3) multivitamin 1 tab PO DAILY 03/13/22 03/13/22 vit C 250 mg-vit E 90 mg-zinc 40 1 tab PO BID 03/13/22 03/13/22 mg-copper 1 [id number] capsule (PreserVision AREDS-2) Previous Rx's Medication Instructions Recorded losartan 50 mg tablet 50 mg PO DAILY #90 tabs 03/13/22 omeprazole 20 mg capsule,delayed 20 mg PO DAILY #90 caps 03/13/22 release simvastatin 20 mg tablet 20 mg PO BEDTIME #90 tabs 03/13/22 hydrocortisone acetate 25 mg 25 mg ID BID PRN hemorrhoids #12 ea 05/09/22 rectal suppository (Anusol-HC) Allergies Allergy/AdvReac Type Severity Reaction Status Date / Time codeine [CODEINE] Allergy Mild Nausea Verified 05/09/22 14:45 Antihistamines - Alkylamine Allergy Unknown Testicular Verified 05/09/22 14:45 [ANTIHISTAMINES - ALKYLAMINE] pain Antihistamines - Ethanolamine Allergy Unknown Testicular Verified 05/09/22 14:45 [ANTIHISTAMINES - pain ETHANOLAMINE] Antihistamines - Allergy Unknown Testicular Verified 05/09/22 14:45 Ethylenediamine pain [ANTIHISTAMINES - ETHYLENEDIAMINE] Antihistamines - Piperazine Allergy Unknown Testicular Verified 05/09/22 14:45 [ANTIHISTAMINES - PIPERAZINE] pain erythromycin base AdvReac Mild NAUSEA, Verified 05/09/22 14:45 [ERYTHROMYCIN BASE] rash morphine [MORPHINE] AdvReac Mild Nausea Verified 05/09/22 14:45 lisinopril AdvReac Cough Verified 05/09/22 14:45 Review of Systems Review of Systems Narrative: GENERAL: Denies chills, fatigue, malaise, fever, sweats, travel HEENT: Denies sinus pain, ear pain, sore throat, difficulty swallowing, neck pain RESPIRATORY: Denies dyspnea, cough, wheezing, hemoptysis, sputum. CARDIOVASCULAR: Denies chest pain, palpitations, orthopnea, edema GASTROINTESTINAL: See HPI : Denies dysuria, frequency, incontinence, hematuria, urinary retention, flank pain. MUSCULOSKELETAL: Denies weakness, joint pain, or bony pain SKIN: No rash, no erythema, no pruritus NEUROLOGIC: Denies weakness, dizziness, headache, numbness, change in speech, confusion PSYCHIATRIC: No concerning psychosocial issues. 12 point review of systems is negative except for those stated above and HPI Patient History Medical History Foot fracture, right Gastroesophageal reflux disease Hyperlipidemia Hypertension Lumbar compression fracture Multiple lesions of metastatic malignancy Psoriasis (~1957) Restless legs syndrome Rotator cuff impingement syndrome of right shoulder Thoracic compression fracture Surgical History History of colonoscopy Hx of right inguinal hernia repair Status post excision of lipoma Family History Unknown No pertinent family history Mother Diabetes mellitus Grandfather Cancer Social History marital status: household members: spouse occupational status: previously employed Smoking Status: Never smoker alcohol intake: current substance use type: does not use Smoking Status: Never smoker alcohol intake frequency: holidays/special occasions only Substance Use Type: does not use Exam Initial Vital Signs Initial Vital Signs: Vital Signs Temperature 98 F 05/09/22 14:41 Pulse Rate 77 05/09/22 14:41 Respiratory Rate 17 05/09/22 14:41 Blood Pressure 183/93 H 05/09/22 14:41 Pulse Oximetry 98 05/09/22 14:41 Oxygen Delivery Method 05/09/22 14:41 GENERAL: Alert pleasant 81-year-old male and in no acute distress. HEENT: Head atraumatic,EOMI, pupils reactive, face symmetric, moist mucous membranes CARDIOVASCULAR: Regular rate and rhythm without murmurs, rubs or gallops. RESPIRATORY: Breath sounds equal bilaterally, no wheezes rales or rhonchi. ABDOMEN: Soft, nontender. Normoactive bowel sounds all 4 quadrants. No guarding or rebound. RECTAL: Bright red blood grossly positive internal hemorrhoid facial EXTREMITIES: Normal range of motion, no clubbing or edema. Neurovascularly intact NEUROLOGICAL: Alert and oriented x4.Normal gait and speech. SKIN: Warm, dry, no laceration, no petechiae, no rashes or lesions. Course Orders Ordered: ED Orders 05/09/22 15:00 Complete Blood Count AUTO DIFF Stat Comprehensive Metabolic Panel Stat 05/09/22 15:17 Type and Screen Stat 05/09/22 15:44 Hemoglobin and Hematocrit Stat Lactate (Lactic Acid) Stat Vital Signs Vital signs: Vital Signs - 8 hr 05/09/22 14:41 05/09/22 15:34 05/09/22 15:35 Temperature 98 F Pulse Rate 77 50 L Respiratory Rate 17 Blood Pressure 183/93 H Pulse Oximetry 98 97 95 Oxygen Delivery Method Room Air 05/09/22 15:35 05/09/22 15:45 05/09/22 15:45 Temperature Pulse Rate 50 L Respiratory Rate Blood Pressure 132/82 134/76 Pulse Oximetry 95 Oxygen Delivery Method 05/09/22 16:00 05/09/22 16:00 05/09/22 16:15 Temperature Pulse Rate 51 L Respiratory Rate Blood Pressure 141/84 H 146/84 H Pulse Oximetry 96 Oxygen Delivery Method 05/09/22 16:15 Temperature Pulse Rate 50 L Respiratory Rate Blood Pressure Pulse Oximetry 96 Oxygen Delivery Method MDM - GI Bleed Lab Data Result diagrams: 05/09/22 15:44 05/09/22 15:00 Labs: Lab Results 05/09/22 05/09/22 05/09/22 Range/Units 15:00 15:00 15:17 WBC 7.7 (4.5-11.0) X10^3/uL RBC 4.90 (4.5-5.9) X10^6/uL Hgb 14.9 (13.5-17.5) g/dL Hct 43.6 (41-53) % MCV 89.1 (80-100) fL MCH 30.5 (26-34) PG MCHC 34.2 (30-36) % RDW 14.1 (11.6-14.8) % Plt Count 243 (150-400) X10^3/uL Neut % (Auto) 75.1 H (50-75) % Lymph % (Auto) 12.3 L (25-40) % [place] % (Auto) 10.5 (3-14) % Eos % (Auto) 1.6 L (2-4) % Baso % (Auto) 0.5 (0-2) % Neut # (Auto) 5800 (6077-2868) /uL Lymph # (Auto) 900 L (0796-5450) /uL [place] # (Auto) 800 (0-900) /uL Eos # (Auto) 100 (0-450) /uL Baso # (Auto) 0 (0-100) /uL Sodium 137 (137-145) mmol/L Potassium 4.1 (3.4-5.1) mmol/L Chloride 102 (98-107) mmol/L Carbon Dioxide 27 (22-32) mmol/L BUN 13 (9-20) mg/dL Creatinine 0.99 (0.66-1.25) mg/dL Estimated GFR > 60 (>60) mL/min BUN/Creatinine Ratio 13.1 (6-22) Glucose 118 H (80-110) mg/dL Lactate (0.7-2.1) mmol/L Calcium 8.8 (8.4-10.2) mg/dL Total Bilirubin 0.7 (0.2-1.3) mg/dL AST 27 (17-59) IU/L ALT 22 (<50) IU/L Alkaline Phosphatase 75 (38-126) U/L Total Protein 7.1 (6.3-8.2) g/dL Albumin 4.2 (3.5-5.0) g/dL Globulin 2.9 (1.7-4.1) g/dL Albumin/Globulin Ratio 1.4 (1.0-2.8) Blood Type O Positive Antibody Screen Negative 05/09/22 05/09/22 Range/Units 15:44 15:44 WBC (4.5-11.0) X10^3/uL RBC (4.5-5.9) X10^6/uL Hgb 14.3 (13.5-17.5) g/dL Hct 41.4 (41-53) % MCV (80-100) fL MCH (26-34) PG MCHC (30-36) % RDW (11.6-14.8) % Plt Count (150-400) X10^3/uL Neut % (Auto) (50-75) % Lymph % (Auto) (25-40) % [place] % (Auto) (3-14) % Eos % (Auto) (2-4) % Baso % (Auto) (0-2) % Neut # (Auto) (6780-6446) /uL Lymph # (Auto) (7421-0058) /uL [place] # (Auto) (0-900) /uL Eos # (Auto) (0-450) /uL Baso # (Auto) (0-100) /uL Sodium (137-145) mmol/L Potassium (3.4-5.1) mmol/L Chloride (98-107) mmol/L Carbon Dioxide (22-32) mmol/L BUN (9-20) mg/dL Creatinine (0.66-1.25) mg/dL Estimated GFR (>60) mL/min BUN/Creatinine Ratio (6-22) Glucose (80-110) mg/dL Lactate 0.9 (0.7-2.1) mmol/L Calcium (8.4-10.2) mg/dL Total Bilirubin (0.2-1.3) mg/dL AST (17-59) IU/L ALT (<50) IU/L Alkaline Phosphatase (38-126) U/L Total Protein (6.3-8.2) g/dL Albumin (3.5-5.0) g/dL Globulin (1.7-4.1) g/dL Albumin/Globulin Ratio (1.0-2.8) Blood Type Antibody Screen MDM Narrative Medical decision making narrative: Patient is an 81-year-old male hemodynamically stable have bright red blood per rectum. He has a hemorrhoid on exam H&H is stable. He is not on any anticoagulation or antiplatelet medication. This is most consistent with a hemorrhoid bleed. Discharge Plan Departure Patient Disposition: Home Clinical Impression: Hemorrhoid Instructions: DI for Hemorrhoids Activity Restrictions/Additional Instructions: *You have been diagnosed with hemorrhoids *What to do: Expect some bleeding still. You have a hemorrhoid the bleeding should slow down. *Continue to take medications as directed A suppository 1 to 2 times a day as needed for hemorrhoid --> SENT TO [facility] IN [place] *Follow up with your primary care provider in 2-3 days or call [phone] *Return to ER if you should have persistent bleeding dizziness lightheadedness shortness of breath with exertion pain or any new, worsening or concerning symptoms Prescriptions: New hydrocortisone acetate [Anusol-HC] 25 mg suppository 25 mg ID BID PRN (Reason: hemorrhoids) Qty: 12 0RF No Action zinc 50 mg Tablet 50 mg PO DAILY Qty: 0 Midol 500-25 mg tablet 2 tab PO PRN PRN (Reason: Headache) Qty: 0 multivitamin Tablet 1 tab PO DAILY cholecalciferol (vitamin D3) [Vitamin D3] 125 mcg (5,000 unit) tablet 125 mcg PO BID calcium carbonate [Calcium 600] 600 mg calcium (1,500 mg) tablet 600 mg PO BID PreserVision AREDS-2 250-90-40-1 mg capsule 1 tab PO BID losartan 50 mg tablet 50 mg PO DAILY Qty: 90 3RF omeprazole 20 mg capsule,delayed release(DR/EC) 20 mg PO DAILY Qty: 90 3RF simvastatin 20 mg tablet 20 mg PO BEDTIME Qty: 90 3RF fluocinonide 0.05 % cream 1 applictn TOP DAILY PRN (Reason: psoriasis) Fiber Gummies 2 gram tablet,chewable 2 gram PO BEDTIME melatonin 10 mg Tablet 10 mg PO BEDTIME PRN (Reason: Sleep) Label Comments: Takes 15 mg total Referrals: Dami Cool DO [Primary Care Provider] - Visit Report Forms: Patient Portal/API
[2022-05-09 15:45] VITALS: BP 134/76; PULSE 50; O2SAT 95
[2022-05-09 15:52] LABS: Hematocrit 41.4 % (41-53); Hemoglobin 14.3 g/dL (13.5-17.5)
[2022-05-09 16:00] VITALS: BP 141/84; PULSE 51; O2SAT 96
[2022-05-09 16:02] LABS: Lactate (Lactic Acid) 0.9 mmol/L (0.7-2.1)
[2022-05-09 16:15] VITALS: BP 146/84; PULSE 50; O2SAT 96
== END 2022-05-09 16:34 | disposition home or self-care (01) ==
PROVIDERS: Emergency Provider Emergency Medicine; PCP Family Medicine
DX: K64.9 Unspecified hemorrhoids (principal)
CPT/HCPCS: 36415; 80053; 83605; 85014; 85018; 85025; 86850; 86900; 86901; 99283

== ENCOUNTER → 2022-07-15 11:03 | Outpatient (CLI) | payer MEDICARE, OTHER, SELFPAY ==
[2018-09-21 18:48] VITALS: BMI 24.2
--- NOTE | 2022-07-15 11:04 | DI.MRI.S_ITS ---
PROCEDURE: MR LUMBAR SPINE WO CON INDICATIONS: drop met lesion TECHNIQUE: Noncontrast sagittal T1 spin echo and T2 fast echo, sagittal STIR, and T2 fast spin echo through the lumbar spine. In cases with scoliosis, additional coronal T2 fast spin echo may be performed. COMPARISON: [facility], MR, MR LUMBAR SPINE WO/W CON, 11/07/2021, 11:09. [facility], MR, MR LUMBAR SPINE WO CON, 05/28/2021, 15:31. FINDINGS: Image quality: Good Alignment: No significant spondylolisthesis. Marrow: No marrow edema is seen at the T12 vertebral body compression fracture, similar to prior. Cord: Terminates in normal position. There is a similar nodule arising probably from the cauda equina nerve roots measuring about 6-7 mm at the L4 level. Soft tissues: There are suspected renal cysts. Intra-abdominal findings are not well evaluated on this study. Specific levels: T12-L1: There is retropulsion at the level of T12 without critical central stenosis. Mild left neural foraminal narrowing. L1-L2: Diffuse disc bulge and facet arthropathy. Mild bilateral foraminal narrowing. L2-L3: Diffuse disc bulge and facet arthropathy. Mild central narrowing. Tlru-nh-[id number] bilateral neural foraminal narrowing. L3-L4: Diffuse disc bulge and facet arthropathy, moderate in severity. Ligamentum flavum hypertrophy. Moderate to severe central narrowing affecting both subarticular recesses. Moderate right and gnsl-vs-spifdspc left neural foraminal narrowing. L4-L5: Diffuse disc bulge and moderate facet arthropathy. Ligamentum flavum hypertrophy. Mild to moderate central narrowing, affecting the right greater than left subarticular recesses. Moderate left and moderate to severe right neural foraminal narrowing. L5-S1: Facet arthropathy and diffuse disc bulge. No high-grade stenosis. IMPRESSION: Stable intradural extramedullary nodule at the L4 level compared to 11/07/2021. Similar height loss of the T12 vertebral body without further acute edema. Similar multilevel spondylosis as described above. Evaluation for neoplasm would be improved with contrast. Dictated by: Jovani Harmon M.D. on 07/15/2022 at 15:31 Approved by: Jovani Harmon M.D. on 07/15/2022 at 15:39
== END ==
PROVIDERS: PCP Family Medicine; Referring Provider Physical Medicine & Rehabilitation; Visit Provider Physical Medicine & Rehabilitation
DX: S32.010A Wedge compression fracture of first lumbar vertebra, initial encounter for closed fracture (principal); G95.89 Other specified diseases of spinal cord; C79.9 Secondary malignant neoplasm of unspecified site; M51.36 Other intervertebral disc degeneration, lumbar region; M47.816 Spondylosis without myelopathy or radiculopathy, lumbar region; M48.061 Spinal stenosis, lumbar region without neurogenic claudication; M51.37 Other intervertebral disc degeneration, lumbosacral region; M48.07 Spinal stenosis, lumbosacral region
CPT/HCPCS: 72148

== ENCOUNTER → 2022-09-19 12:15 | Outpatient (CLI) | payer MEDICARE, OTHER, SELFPAY ==
[2018-09-21 18:48] VITALS: BMI 24.2
--- NOTE | 2022-09-19 12:17 | DI.ECHO.S_ITS ---
Version: 1 Study ID: [id number] [place] [address] Name: REED PALACIO Study Date: 09/19/2022, 12: 36 PM : 1940 BP: 157 / 85 mmHg Gender: Male Height: 69 in Age: 82 Years Weight: 170 lb BSA: 1.93 mA? Ordering: SAMMY BORDEN Referring: SAMMY BORDEN Clinician: Kelly Dominguez Reason For Study: HEART MURMUR History: Summary Statements Sinus bradycardia with heart rate 47-51 bpm. Normal LV size and mildly increased wall thickness. Normal wall motion and LV systolic function. Ejection fraction is 60-65%. Moderate left atrial enlargement. Otherwise normal chamber sizes. Aortic valve leaflets are moderately thickened and calcified. There is mild associated aortic regurgitation and moderate aortic stenosis with peak velocity of 3.4 m/s and mean gradient of 30 mmHg. Calculated valve area is 1 biology intern?. No prior study available for comparison. Recommend non-urgent cardiology evaluation. Procedure: A two-dimensional transthoracic echocardiogram with color flow and Doppler was performed. The study quality was technically adequate. Comparison is made with the echocardiogram of 09/15/2014. The patient was in sinus bradycardia with heart rates between 47-51 bpm during the exam. Left Ventricle: The left ventricle is normal in size. There is normal left ventricular wall thickness. The ejection fraction is estimated to be 60-65%. Right Ventricle: The right ventricle is mildly dilated. The right ventricular systolic function is normal. Atria: The left atrium is moderately dilated. Right atrial size is normal. There is no Doppler evidence for an interatrial shunt. Mitral Valve: The mitral valve is normal in structure and function. There is mild to moderate mitral regurgitation. Aortic Valve: The aortic valve is trileaflet. The aortic valve is moderately calcified. There is moderate aortic stenosis. The peak aortic velocity is 3.5 m/sec. The aortic valve mean gradient is 30 mmHg. The calculated aortic valve area is 1.1 cm2. There is mild aortic regurgitation. Tricuspid Valve: The tricuspid valve is normal in structure and function. There is mild tricuspid regurgitation. The right ventricular systolic pressure is estimated to be at least 29 mmHg based on an estimated right atrial pressure of 3 mm Hg. Pulmonic Valve: The pulmonic valve is not well visualized. There is no pulmonic valvular regurgitation. Great Vessels: The aortic root is normal size. The dimensions of the ascending aorta are normal. The IVC is of normal diameter and collapses greater than 50% with a sniff. This suggests a low right atrial pressure of 3 mm Hg. Pericardium/ Pleura: There is no pericardial effusion. There is no pleural effusion. 2D and M-Mode Measurements and Calculations LVIDd: 4.7 cm LVOT diam: 2.17 cm LVIDs: 3.3 cm Ao root diam: 3.5 cm IVSd: 1.14 cm asc Aorta Diam: 3.5 cm LVPWd: 0.87 cm Ao Arch Diam (Prox Trans): 2.8 cm LV lea. diameter/BSA (cm/m^2): 2.45 LV sys. diameter/BSA (cm/m^2): 1.69 EPSS: 0.81 cm RVD1 (basal): 4.2 cm TAPSE: 2.36 cm LA A4 area: 22.9 biology intern? IVC diam: 1.17 cm LA A2 area: 23.3 biology intern? RA area: 20.7 biology intern? LA length (vol): 5.9 cm RA long axis: 5.9 cm LA vol: 76.3 ml RA vol: 61.8 ml LA vol index: 39.6 ml/mA? RA : 32.0 ml/mA? Doppler Measurements and Calculations Ao V2 max: 351.5 cm/sec LVOT Max Elio: 99.8 cm/sec Ao V2 mean: 242.0 cm/sec LV V1 max P.0 mmHg Ao V2 VTI: 85.2 cm LV V1 VTI: 24.4 cm Ao max P.4 mmHg SV(LVOT): 90.5 ml Ao mean P.5 mmHg KODI(I,D): 1.06 biology intern? KODI(V,D): 1.05 biology intern? KODI indexed to BSA (cm^2/m^2): 0.55 sev ratio: 0.29 AI P1/2t: 891.9 msec AI dec slope: 145.7 cm/secA? MV E max elio: 57.1 cm/sec MV dec time: 0.29 sec MV A max elio: 65.2 cm/sec MV E/A: 0.88 Med Peak E' Elio: 5.3 cm/sec Lat Peak E' Elio: 7.1 cm/sec E/e' average: 9.4 TR max elio: 253.4 cm/sec TR max P.7 mmHg Electronically signed by: Jenifer Main M.D. 09/19/2022, 2: 04 PM
== END ==
PROVIDERS: PCP Family Medicine; Referring Provider Family Medicine; Visit Provider Family Medicine
DX: I08.3 Combined rheumatic disorders of mitral, aortic and tricuspid valves (principal); R01.1 Cardiac murmur, unspecified
CPT/HCPCS: 93306

== ENCOUNTER → 2022-10-22 13:37 | Outpatient (CLI) | payer MEDICARE, OTHER, SELFPAY ==
[2018-09-21 18:48] VITALS: BMI 24.2
--- NOTE | 2022-10-22 13:39 | DI.RAD.S_ITS ---
PROCEDURE: XR THORACIC SPINE 3V INDICATIONS: RIB PAIN TECHNIQUE: 3 views of the thoracic spine were acquired. COMPARISON: [facility], , XR THORACIC SPINE 2V, 05/22/2021, 10:56. FINDINGS: Bones: Wedge-shaped L1 compression fracture remains unchanged from the prior exam. Generalized decreased osseous mineralization present. L3 and L5 compression fractures are also stable from the prior exam but depicted previously. Soft tissues: No paravertebral stripe thickening. IMPRESSION: Stable osteopenic compression fractures, unchanged from the prior Approved by: Braden Dixon M.D. on 10/22/2022 at 14:06
--- NOTE | 2022-10-22 13:39 | DI.RAD.S_ITS ---
PROCEDURE: XR LUMBAR SPINE MIN 4V INDICATIONS: BACK PAIN TECHNIQUE: 5 views of the lumbar spine were acquired, including bilateral oblique views. COMPARISON: [facility], , XR LUMBAR SPINE MIN 4V, 05/22/2021, 10:56. FINDINGS: Bones: 5 nonrib-bearing vertebrae are present. There is normal bony alignment. Chronic anterior wedge compression deformity at T12 level is again seen unchanged from prior study. No acute lumbar spine vertebral body compression fracture. Degenerative endplate changes throughout lower thoracic and lumbar spine is seen most notably at L4-5 and L5-S1 levels. No suspicious bony lesions. Soft tissues: Overlying bowel gas pattern is normal. No suspicious soft tissue calcifications. Oblique images: No pars defects. IMPRESSION: Chronic appearing anterior wedge compression deformity at T12 level. No acute lumbar spine vertebral body compression fracture or significant spondylolisthesis. Degenerative disc disease throughout lumbar spine. No gross pars defects. Dictated by: Brad Walter M.D. on 10/22/2022 at 14:31 Approved by: Brad Walter M.D. on 10/22/2022 at 14:32
== END ==
PROVIDERS: PCP Family Medicine; Referring Provider Physical Medicine & Rehabilitation; Visit Provider Physical Medicine & Rehabilitation
DX: S22.080A Wedge compression fracture of T11-T12 vertebra, initial encounter for closed fracture (principal); S32.010A Wedge compression fracture of first lumbar vertebra, initial encounter for closed fracture; M51.36 Other intervertebral disc degeneration, lumbar region; M47.816 Spondylosis without myelopathy or radiculopathy, lumbar region; M75.41 Impingement syndrome of right shoulder
CPT/HCPCS: 72072; 72110; 99214

== ENCOUNTER 2022-11-25 12:39 | Outpatient (CLI) | payer MEDICARE, OTHER, SELFPAY ==
[2018-09-21 18:48] VITALS: BMI 24.2
[2022-11-25] VITALS (8 sets, daily range): BP systolic 122–184; BP diastolic 83–94; PULSE 46–54; RESP 14–20; TEMP 36.5; O2SAT 90–97
--- NOTE | 2022-11-25 12:41 | DI.RAD.S_ITS ---
PROCEDURE: PAIN L/S FACET INJ/BLK 1ST RAMON COMPARISON: None. INDICATIONS: SPONDYLOSIS FINDINGS: Access needle tips in the bilateral L3-L4 and L4-L5 facet joints. Injection of small amount of contrast material confirms positioning of the access needles in the bilateral L3-L4 and L4-L5 facets and demonstrate extra thecal location. IMPRESSION: Access needles in the bilateral L3-L4 and L4-L5 facet joints for facet joint injection. Dictated by: Stefania Velasquez MD, PhD on 11/25/2022 at 15:00 Approved by: Stefania Velasquez MD, PhD on 11/25/2022 at 15:02
[2022-11-25] MEDS: MIDAZOLAM 2 MG/2 ML VIAL IV (14:01)
[2022-11-25] MEDS: BETAMETHASONE 30 MG/5 ML MDV 12 MG INJ (14:07)
[2022-11-25] MEDS: BUPIVACAINE 0.5% (PF) 10 ML VIAL 5 ML INJ (14:07)
[2022-11-25] MEDS: IOPAMIDOL 15 ML VIAL 3 ML INJ (14:08)
[2022-11-25] MEDS: LIDOCAINE 1% (PF) 5 ML 10 ML INJ (14:10)
--- NOTE | 2022-11-25 14:22 | P.PCN_ITS ---
Date/Time/Diagnoses Date of procedure: 11/25/22 Time of procedure: 14:22 Pre-procedure diagnosis: 1. FACET ARTHROPATHY 2. AXIAL LBP 3. MULTILEVEL DDD Post-procedure diagnosis: same Procedure Notes Procedure: 1. FLUORSCOPICALLY GUIDED CONTRAST CONTROLLED FACET JOINT INJECTIONS BILATERAL L3/4, L4/5 Indications: Roosevelt is referred by Dr. Cool for treatment of Axial LBP Physician: Stef Stapleton Total Fluoroscopy time (seconds): 10 Total sedation minutes: 14 Complications: none Procedure in detail & Post-procedure care: FINDINGS Multilevel Facet Arthropathy with Clinically significant axial LBP DESCRIPTION OF PROCEDURE Fluoroscopically guided, contrast-controlled bilateral L3/4, L4/5 facet joint injections. Following review of allergy and review of potential side effects and complications, including, but not necessarily limited to, infection, allergic reaction, local tissue breakdown, stroke, temporary or permanent nerve injury, paralysis, and possible , the patient indicated that the patient understood and agreed to proceed. An informed consent document was signed by the patient, witnessed by a nurse, and placed in the patient's chart. Additionally, other treatment options including medications, modalities, and physical therapy were reviewed with the patient. After review of previous anaesthesic history and IV conscious sedation the patient was deemed safe to proceed with today's procedure with IV conscious sedation as ASA class II designation. Safety time-out was performed to confirm patient ID, procedure to be performed and site of procedure. IV sedation was accomplished with a combination of 2mg of Versed was administered by the RN after DO order, titrated to patient comfort during the course of the procedure while the patient remained responsive to all verbal commands. In the prone position, following sterile prep and drape of the lumbar region, the posterior aspect of the L3/4, L4/5 facet joints were identified fluoroscopically. The skin was anesthetized via a 25-gauge 1.5-inch needle with 1% lidocaine solution into the corresponding facet joints. At this point, a 22- gauge 3.5-inch spinal needle was atraumatically introduced and advanced under fluoroscopic guidance into the corresponding facet joints. Following negative aspiration, injections of approximately 0.2cc of Isovue 200 confirmed interarticular placement without vascular uptake. The identical procedure was then performed at the L3/4, L4/5 facet joints on the left. Radiological data, including multiple fluoroscopic views of the lumbosacral spine, reveal a spinal needle at the L3/4, L4/5 facet joints bilaterally. Subsequent views show flow of contrast material both superiorly and inferiorly within the joint space without vascular or intrathecal uptake. At this point, a total of 0.5cc including a mixture of 0.25cc Marcaine and 0.25cc betamethasone was injected without complication into each of the corresponding facet joints. The patient tolerated the procedure well without signs or symptoms of complications prior to transfer to the recovery area continued monitoring without incident. The patient was then transferred to the recovery area where they were observed for an appropriate period of time after the injection. The patient reported a VAS score of 7 prior to the procedure and a post-procedure VAS of 0. POST OP INSTRUCTIONS The patient was provided a Pain Log to continue to record their response to the target-specific procedure prior to follow-up visit with their referring physician. Additionally, specific post-injection care instructions and a contact number to our office were provided if concerns arise regarding possible complications associated with the procedure are suspected.
== END 2022-11-25 14:37 | disposition home or self-care (01) ==
LOC: RAD 12:41
PROVIDERS: PCP Family Medicine; Referring Provider Physical Medicine & Rehabilitation; Visit Provider Physical Medicine & Rehabilitation
DX: M47.816 Spondylosis without myelopathy or radiculopathy, lumbar region (principal); M51.36 Other intervertebral disc degeneration, lumbar region
CPT/HCPCS: 64493; 64494; 99152; J0702; J2250

== ENCOUNTER → 2023-03-09 09:14 | Outpatient (CLI) | payer MEDICARE, OTHER, SELFPAY ==
[2022-12-15 14:37] VITALS: BMI 24.2
[2023-03-09 09:41] LABS: Add Manual Diff / Slide Review NO; Basophils Absolute Auto 0 /uL (0-100); Basophils Percent Auto 0.5 % (0-2); Eosinophils Absolute Auto 200 /uL (0-450); Eosinophils Percent Auto 2.6 % (2-4); Hematocrit 39.2 % (41-53); Hemoglobin 13.2 g/dL (13.5-17.5); Lymphocytes Absolute Auto 1100 /uL (1100-4500); Lymphocytes Percent Auto 15.8 % (25-40); Mean Corpuscular HGB Conc 33.7 % (30-36); Mean Corpuscular Hemoglobin 29.8 PG (26-34); Mean Corpuscular Volume 88.3 fL (80-100); Monocytes Absolute Auto 900 /uL (0-900); Monocytes Percent Auto 12.8 % (3-14); Neutrophils Absolute Auto 4700 /uL (1500-7000); Neutrophils Percent Auto 68.3 % (50-75); Platelet Count 231 X10^3/uL (150-400); Red Blood Cell Count 4.43 X10^6/uL (4.5-5.9); Red Cell Distribution Width 13.7 % (11.6-14.8); White Blood Cell Count 6.9 X10^3/uL (4.5-11.0)
[2023-03-09 10:02] LABS: Hemoglobin A1C% w Est Avg Glu 5.7 % (4.0-6.0)
[2023-03-09 10:11] LABS: Alanine Aminotransferase 24 IU/L (<50); Albumin 3.7 g/dL (3.5-5.0); Albumin Globulin Ratio 1.6 (1.0-2.8); Alkaline Phosphatase 72 U/L (38-126); Aspartate Aminotransferase 30 IU/L (17-59); BUN Creatinine Ratio 13.5 (6-22); Bilirubin Total 0.5 mg/dL (0.2-1.3); Blood Urea Nitrogen 15 mg/dL (9-20); Calcium 9.5 mg/dL (8.4-10.2); Carbon Dioxide 29 mmol/L (22-32); Chloride 102 mmol/L (98-107); Cholesterol 148 mg/dL (140-199); Estimated Glomerular Filt Rate > 60 mL/min (>60); Globulin 2.3 g/dL (1.7-4.1); Glucose 106 mg/dL (80-110); HDL Cholesterol 45 mg/dL (40-60); HEMOLYSIS < 15 (0-50); LDL Cholesterol Calculated 84 mg/dL (<100); Potassium 3.7 mmol/L (3.4-5.1); Sodium 137 mmol/L (137-145); Triglycerides 95 mg/dL (35-150)
== END ==
PROVIDERS: PCP Family Medicine; Referring Provider Family Medicine; Visit Provider Family Medicine
DX: E78.5 Hyperlipidemia, unspecified (principal); R73.9 Hyperglycemia, unspecified; Z12.5 Encounter for screening for malignant neoplasm of prostate; I10 Essential (primary) hypertension
CPT/HCPCS: 36415; 80053; 80061; 83036; 85025; G0103

== ENCOUNTER 2023-03-26 14:16 | Outpatient (CLI) | payer MEDICARE, OTHER, SELFPAY ==
[2022-12-15 14:37] VITALS: BMI 24.2
[2023-03-26] VITALS (8 sets, daily range): BP systolic 145–195; BP diastolic 75–95; PULSE 51–59; RESP 10–18; TEMP 36.2; O2SAT 91–98
--- NOTE | 2023-03-26 14:17 | DI.RAD.S_ITS ---
PROCEDURE: PAIN L/S FACET INJ/BLK 1ST RAMON INDICATIONS: SPONDYLOSIS COMPARISON: [facility], , PAIN L/S FACET INJ/BLK 1ST RAMON, 11/25/2022, 14:06. FINDINGS: Fluoroscopic spot filming was performed to verify placement of spinal needles on both sides at the L3, L4, and L5 levels, as labeled on the films. Appropriate location of the needle tips was confirmed by injection of iodinated contrast. IMPRESSION: Intraprocedural examination demonstrating appropriate positions of the needles. Dictated by: Waldo Pedraza M.D. on 03/26/2023 at 18:19 Approved by: Waldo Pedraza M.D. on 03/26/2023 at 18:20
[2023-03-26] MEDS: MIDAZOLAM 2 MG/2 ML VIAL IV (15:43)
[2023-03-26] MEDS: LIDOCAINE 1% 20 ML 5 ML INJ (15:49)
[2023-03-26] MEDS: IOPAMIDOL 15 ML VIAL 3 ML INJ (15:49)
[2023-03-26] MEDS: BUPIVACAINE 0.5% (PF) 10 ML VIAL 5 ML INJ (15:49)
--- NOTE | 2023-03-26 16:02 | PM.PROC.IR.1 ---
Date/Time/Diagnoses Date of procedure: 03/26/23 Time of procedure: 16:02 Pre-procedure diagnosis: FACET ARTHROPATHY Post-procedure diagnosis: same Procedure Notes Procedure: 1. BILATERAL L3, L4 AND L5 DIAGNOSTIC MB BLOCKS Indications: Roosevelt is referred by Dr. Cool for treatment of Bilateral Axial LBP. Physician: Stef Stapleton Total Fluoroscopy time (seconds): 17 Total sedation minutes: 15 Complications: none Procedure in detail & Post-procedure care: DESCRIPTION OF PROCEDURE Fluoroscopically guided, contrast-controlled bilateral L3, L4 AND L5 medial branch blocks with 0.5cc of 0.5% Marcaine. Following review of allergy and review of potential side effects and complications, including, but not necessarily limited to, infection, allergic reaction, local tissue breakdown, nerve injury, paralysis, stroke and possible , the patient indicated that the patient understood and agreed to proceed. An informed consent document was signed by the patient, witnessed by a nurse, and placed in the patient's chart. After review of previous anaesthesic history and IV conscious sedation the patient was deemed safe to proceed with today's procedure with IV conscious sedation as ASA class II designation. Safety time-out was performed to confirm patient ID, procedure to be performed and site of procedure. IV sedation was accomplished with a combination of 2mg of Versed was administered by the RN after DO order, titrated to patient comfort during the course of the procedure while the patient remained responsive to all verbal commands In the prone position, following sterile prep and drape of the lumbar region, the right L3, L4 AND L5 anatomical location of the medial branch of the dorsal ramus was identified fluoroscopically. Subsequently an anesthetic skin wheal using 1% lidocaine solution was initiated at each of the anatomical spots. Subsequently then a 22-gauge 3.5-inch spinal needle was atraumatically introduced and advanced under fluoroscopic guidance at each of the corresponding sites at the right L3, L4 and L5 MB. After negative aspiration, 0.2cc of Isovue 200 was injected, confirming placement without vascular or intrathecal uptake. Subsequently then 0.5cc of 0.5% Marcaine solution was injected at each of the corresponding sites at the right L3, L4 and L5 medial branch locations. The identical procedure was replicated on the left. The patient tolerated the procedure well without signs or symptoms of complications. The patient tolerated the procedure well without signs or symptoms of complications prior to transfer to the recovery area continued monitoring without incident. Post-procedure, the patient was monitored initiating provocative activities to measure the amount of relief from block of the facetogenic pain. The patient reported a VAS of 7 prior to the procedure and a post-procedure VAS of 1. It has been a pleasure to assist in the diagnostic and therapeutic care of your patient. POST OP INSTRUCTIONS The patient was provided with a Pain Log to complete over the next several hours and subsequent days prior to the patient's follow up with the ordering physician. If the patient has ip network architect relief to the solution applied, then they may be a candidate for medial branch rhizotomy. The patient is aware, was provided, once again, with a Pain Log and will follow up with the referring physician for review and clinical correlation
== END 2023-03-26 16:17 | disposition home or self-care (01) ==
PROVIDERS: PCP Family Medicine; Referring Provider Physical Medicine & Rehabilitation; Visit Provider Physical Medicine & Rehabilitation
DX: M47.816 Spondylosis without myelopathy or radiculopathy, lumbar region (principal)
CPT/HCPCS: 64493; 64494; 99152; J2250

== ENCOUNTER 2023-06-11 12:48 | Outpatient (CLI) | payer MEDICARE, OTHER, SELFPAY ==
[2022-12-15 14:37] VITALS: BMI 24.2
[2023-06-11] VITALS (9 sets, daily range): BP systolic 135–178; BP diastolic 71–86; PULSE 48–57; RESP 12–19; TEMP 36.4; O2SAT 91–96
--- NOTE | 2023-06-11 13:30 | DI.RAD.S_ITS ---
PROCEDURE: PAIN L/S FACET INJ/BLK 1ST RAMON INDICATIONS: SPONDYLOSIS COMPARISON: [facility], , PAIN L/S FACET INJ/BLK 1ST RAMON, 03/26/2023, 15:48. FINDINGS: Fluoroscopic spot filming was performed to verify placement of spinal needles at the L3, L4, and L5 level(s), as labeled on the films. Appropriate location(s) of the needle tip(s) was confirmed by injection of iodinated contrast. IMPRESSION: Bilateral needle placement for medial branch block. Dictated by: Wei Stallings M.D. on 06/11/2023 at 15:53 Approved by: Wei Stallings M.D. on 06/11/2023 at 15:55
[2023-06-11] MEDS: MIDAZOLAM 2 MG/2 ML VIAL IV (14:15)
[2023-06-11] MEDS: iopamidoL 15 ML VIAL 3 ML INJ (14:17)
[2023-06-11] MEDS: LIDOCAINE 1% 20 ML 5 ML INJ (14:18)
[2023-06-11] MEDS: LIDOCAINE 2% INJ MDV 20ML 5 ML INJ (14:18)
--- NOTE | 2023-06-11 14:31 | PM.PROC.IR.1 ---
Date/Time/Diagnoses Date of procedure: 06/11/23 Time of procedure: 14:31 Pre-procedure diagnosis: 1. FACET ARTHROPATHY Post-procedure diagnosis: same Procedure Notes Procedure: 1. BILATERAL L3, L4 AND L5 DIAGNOSTIC MB BLOCKS Indications: Roosevelt is referred by Dr. Cool for treatment of Bilateral Axial LBP. Physician: Stef Stapleton Total Fluoroscopy time (seconds): 12 Total sedation minutes: 12 Complications: none Procedure in detail & Post-procedure care: DESCRIPTION OF PROCEDURE Fluoroscopically guided, contrast-controlled bilateral L3, L4 AND L5 medial branch blocks with 0.5cc of 2% Lidocaine. Following review of allergy and review of potential side effects and complications, including, but not necessarily limited to, infection, allergic reaction, local tissue breakdown, nerve injury, paralysis, stroke and possible , the patient indicated that the patient understood and agreed to proceed. An informed consent document was signed by the patient, witnessed by a nurse, and placed in the patient's chart. After review of previous anaesthesic history and IV conscious sedation the patient was deemed safe to proceed with today's procedure with IV conscious sedation as ASA class II designation. Safety time-out was performed to confirm patient ID, procedure to be performed and site of procedure. IV sedation was accomplished with a combination of 2mg of Versed was administered by the RN after DO order, titrated to patient comfort during the course of the procedure while the patient remained responsive to all verbal commands In the prone position, following sterile prep and drape of the lumbar region, the right L3, L4 AND L5 anatomical location of the medial branch of the dorsal ramus was identified fluoroscopically. Subsequently an anesthetic skin wheal using 1% lidocaine solution was initiated at each of the anatomical spots. Subsequently then a 22-gauge 3.5-inch spinal needle was atraumatically introduced and advanced under fluoroscopic guidance at each of the corresponding sites at the right L3, L4 and L5 MB. After negative aspiration, 0.2cc of Isovue 200 was injected, confirming placement without vascular or intrathecal uptake. Subsequently then 0.5cc of 2% Lidocaine solution was injected at each of the corresponding sites at the right L3, L4 and L5 medial branch locations. The identical procedure was replicated on the left. The patient tolerated the procedure well without signs or symptoms of complications. The patient tolerated the procedure well without signs or symptoms of complications prior to transfer to the recovery area continued monitoring without incident. Post-procedure, the patient was monitored initiating provocative activities to measure the amount of relief from block of the facetogenic pain. The patient reported a VAS of 7 prior to the procedure and a post-procedure VAS of 1. It has been a pleasure to assist in the diagnostic and therapeutic care of your patient. POST OP INSTRUCTIONS The patient was provided with a Pain Log to complete over the next several hours and subsequent days prior to the patient's follow up with the ordering physician. If the patient has creative writing professor relief to the solution applied, then they may be a candidate for medial branch rhizotomy. The patient is aware, was provided, once again, with a Pain Log and will follow up with the referring physician for review and clinical correlation
== END 2023-06-11 14:51 | disposition home or self-care (01) ==
PROVIDERS: PCP Family Medicine; Referring Provider Physical Medicine & Rehabilitation; Visit Provider Physical Medicine & Rehabilitation
DX: M47.816 Spondylosis without myelopathy or radiculopathy, lumbar region (principal)
CPT/HCPCS: 64493; 64494; 99152; J2250

== ENCOUNTER 2023-07-30 09:43 | Outpatient (CLI) | payer MEDICARE, OTHER, SELFPAY ==
[2022-12-15 14:37] VITALS: BMI 24.2
[2023-07-30] VITALS (11 sets, daily range): BP systolic 137–183; BP diastolic 77–94; PULSE 50–59; RESP 12–20; TEMP 36.5; O2SAT 91–95
[2023-07-30] MEDS: fentaNYL 100 MCG/2 ML INJ 25 MCG IV (10:34)
[2023-07-30] MEDS: MIDAZOLAM 2 MG/2 ML VIAL 1 MG IV (10:34)
[2023-07-30] MEDS: LIDOCAINE 1% 20 ML 5 ML INJ (10:45)
[2023-07-30] MEDS: BUPIVACAINE 0.5% (PF) 10 ML VIAL 5 ML INJ (10:45)
--- NOTE | 2023-07-30 11:15 | DI.RAD.S_ITS ---
PROCEDURE: PAIN L/S MED/LAT N RFA BILAT INDICATIONS: FACET ARTHROPATHY COMPARISON: None. FINDINGS: Fluoroscopic spot filming was performed to verify placement of spinal needles at the L3, L4 and L5 level(s), as labeled on the films. IMPRESSION: Fluoroscopic images demonstrate spinal needles at L3, L4 and L5. Please see procedure report for details. Dictated by: Ekta Booker M.D. on 07/30/2023 at 13:27 Approved by: Ekta Booker M.D. on 07/30/2023 at 13:27
--- NOTE | 2023-07-30 11:24 | P.PCN_ITS ---
Date/Time/Diagnoses Date of procedure: 07/30/23 Time of procedure: 11:24 Pre-procedure diagnosis: 1. RECALCITRANT FACET ARTHROPATHY Post-procedure diagnosis: same Procedure Notes Procedure: 1. BILATERAL L3, L4 AND L5 MEDIAL BRANCH RADIOFREQUENCY NEUROTOMY Indications: Roosevelt is referred by Dr. Cool for treatment of facet arthropathy. Physician: Stef Stapleton Total Fluoroscopy time (seconds): 29 Total sedation minutes: 41 Complications: none Procedure in detail & Post-procedure care: DESCRIPTION OF PROCEDURE Bilateral L3, L4 and L5 medial branch radiofrequency neurotomy The patient is well known to this clinic having undergone previous facet injections with good but temporary relief. The patient has experienced appropriate, concordant relief with previous facet and median branch blocks but the patient's pain has been recalcitrant to further conservative measures. Therefore, based upon the patient's relief and persistent symptoms, the patient is considered an appropriate candidate for facet rhizotomy. All of the patient's questions regarding the risks versus benefits of the procedure, including, but not limited to, bleeding, infection, temporary as well as lasting nerve injury, paralysis, stroke, and , as well treatment alternatives were answered to satisfaction. After obtaining informed consent, denial of pertinent drug allergies, as well as being made aware of the potential risks of bleeding, infection, spinal cord trauma, paralysis, temporary and permanent nerve damage, seizure, stroke, and possible , the patient was brought to the fluoroscopy suite and positioned prone on the fluoroscopy table. After review of previous anaesthesic history and IV conscious sedation the patient was deemed safe to proceed with today's procedure with IV conscious sedation as ASA class II designation. Safety time-out was performed to confirm patient ID, procedure to be performed and site of procedure. IV sedation was accomplished with a combination of 1mg of Versed and 25mcg of Fentanyl administered by the RN after DO order, titrated to patient comfort during the course of the procedure while the patient remained responsive to all verbal commands. The lumbar region was prepped in usual sterile fashion and covered with a fenestrated drape in the usual sterile fashion. Appropriate monitors applied including pulse oximeter, pulse, and blood pressure for regular monitoring throughout the procedure. After local infiltration using 1% lidocaine, under fluoroscopic guidance, a 10- cm RF insulated needle with a 10-mm active tip was positioned parallel to the ju nction of the right the superior articulating process where the L5 medial branch resides. Needle placement was confirmed with motor stimulation of .5v on the right which produced local stimulation without radicular component. The stimulation was then increased to 2v with, once again, only local multifidus stimulation without radicular component. The needle was then removed and the identical procedure was performed along the length of the right L4 medial branch with motor stimulation at .7v on the right. The identical procedure was once again performed along the length of the right L3 and medial branch with motor stimulation of .5v on the right. The medial branches were then anesthetised with 0.5% marcaine. This was then followed by two discreet lesions performed at 80 degrees Celsius for 90 seconds each. The identical procedures were repeated on the left. The patient tolerated the procedure well without signs or symptoms of complications prior to transfer to the recovery area continued monitoring without incident. The patient was then transferred to the recovery area where they were observed for an appropriate period of time after the injection. The patient reported a VAS score of 9 prior to the procedure and a post-procedure VAS of 0. POST OP INSTRUCTIONS The patient was provided a Pain Log to continue to record the patient's response to the target-specific procedure prior to the patient's follow-up visit with the referring physician. Additionally, specific post-injection care instructions and a contact number to our office were provided if concerns arise regarding possible complications associated with the procedure are suspected.
== END 2023-07-30 11:28 | disposition home or self-care (01) ==
LOC: RAD 09:44
PROVIDERS: PCP Family Medicine; Referring Provider Physical Medicine & Rehabilitation; Visit Provider Physical Medicine & Rehabilitation
DX: M47.816 Spondylosis without myelopathy or radiculopathy, lumbar region (principal)
CPT/HCPCS: 64635; 64636; 99152; 99153; J2250; J3010

== ENCOUNTER 2024-07-25 14:15 | Outpatient (RCR) | payer MEDICARE, OTHER, SELFPAY ==
[2022-12-15 14:37] VITALS: BMI 24.2
== END 2024-07-25 16:15 ==
LOC: CAR 14:15
PROVIDERS: PCP Family Medicine; Referring Provider Internal Medicine; Visit Provider Internal Medicine
DX: Z95.2 Presence of prosthetic heart valve (principal); I35.0 Nonrheumatic aortic (valve) stenosis
CPT/HCPCS: 93798

== ENCOUNTER → 2024-08-29 13:24 | Outpatient (CLI) | payer OTHER, SELFPAY ==
[2024-08-18 09:45] VITALS: BMI 24.2
[2024-08-29 14:46] LABS: Microalbumin Urine Random 0.7 mg/dL (0-1.6)
[2024-08-29 14:48] LABS: Creatinine Urine Random 38.29 mg/dL
[2024-08-29 14:52] LABS: Add Manual Diff / Slide Review NO; Basophils Absolute Auto 0 /uL (0-100); Basophils Percent Auto 0.5 % (0-2); Eosinophils Absolute Auto 100 /uL (0-450); Eosinophils Percent Auto 1.7 % (2-4); Hemoglobin 11.9 g/dL (13.5-17.5); Lymphocytes Absolute Auto 900 /uL (1100-4500); Lymphocytes Percent Auto 11.8 % (25-40); Mean Corpuscular HGB Conc 33.1 % (30-36); Mean Corpuscular Hemoglobin 29.4 PG (26-34); Mean Corpuscular Volume 88.9 fL (80-100); Monocytes Absolute Auto 800 /uL (0-900); Monocytes Percent Auto 10.3 % (3-14); Neutrophils Absolute Auto 6000 /uL (1500-7000); Neutrophils Percent Auto 75.7 % (50-75); Platelet Count 236 X10^3/uL (150-400); Red Blood Cell Count 4.05 X10^6/uL (4.5-5.9); Red Cell Distribution Width 14.7 % (11.6-14.8); White Blood Cell Count 7.9 X10^3/uL (4.5-11.0)
[2024-08-29 15:18] LABS: Alanine Aminotransferase 22 IU/L (<50); Albumin 4.3 g/dL (3.5-5.0); Albumin Globulin Ratio 1.7 (1.0-2.8); Alkaline Phosphatase 78 U/L (38-126); Aspartate Aminotransferase 41 IU/L (17-59); BUN Creatinine Ratio 17.4 (6-22); Bilirubin Total 0.6 mg/dL (0.2-1.3); Blood Urea Nitrogen 25 mg/dL (9-20); Carbon Dioxide 27 mmol/L (22-32); Chloride 103 mmol/L (98-107); Estimated Glomerular Filt Rate 48 mL/min (>60); Globulin 2.5 g/dL (1.7-4.1); Glucose 105 mg/dL (80-110); HEMOLYSIS 16 (0-50); Potassium 4.1 mmol/L (3.4-5.1); Sodium 135 mmol/L (137-145); Total Protein 6.8 g/dL (6.3-8.2)
[2024-08-29 15:20] LABS: Cholesterol 144 mg/dL (140-199); HDL Cholesterol 43 mg/dL (40-60); LDL Cholesterol Calculated 79 mg/dL (<100); Triglycerides 108 mg/dL (35-150)
== END ==
PROVIDERS: PCP Family Medicine; Referring Provider Family Medicine; Visit Provider Family Medicine
DX: I35.0 Nonrheumatic aortic (valve) stenosis (principal); E78.5 Hyperlipidemia, unspecified; R73.9 Hyperglycemia, unspecified; N18.31 Chronic kidney disease, stage 3a; I12.9 Hypertensive chronic kidney disease with stage 1 through stage 4 chronic kidney disease, or unspecified chronic kidney disease
CPT/HCPCS: 36415; 80053; 80061; 82043; 82570; 85025

== ENCOUNTER → 2024-11-10 11:20 | Outpatient (CLI) | payer OTHER, SELFPAY ==
[2024-08-18 09:45] VITALS: BMI 24.2
[2024-11-10 11:58] LABS: Add Manual Diff / Slide Review NO; Basophils Absolute Auto 0 /uL (0-100); Basophils Percent Auto 0.3 % (0-2); Eosinophils Absolute Auto 100 /uL (0-450); Eosinophils Percent Auto 1.4 % (2-4); Hematocrit 34.6 % (41-53); Hemoglobin 11.8 g/dL (13.5-17.5); Lymphocytes Absolute Auto 400 /uL (1100-4500); Lymphocytes Percent Auto 5.2 % (25-40); Mean Corpuscular HGB Conc 34.1 % (30-36); Mean Corpuscular Hemoglobin 29.4 PG (26-34); Mean Corpuscular Volume 86.1 fL (80-100); Monocytes Absolute Auto 800 /uL (0-900); Monocytes Percent Auto 10.1 % (3-14); Neutrophils Absolute Auto 6800 /uL (1500-7000); Platelet Count 235 X10^3/uL (150-400); Red Blood Cell Count 4.02 X10^6/uL (4.5-5.9); White Blood Cell Count 8.2 X10^3/uL (4.5-11.0)
[2024-11-10 12:24] LABS: Alanine Aminotransferase 38 IU/L (<50); Albumin 3.7 g/dL (3.5-5.0); Albumin Globulin Ratio 1.8 (1.0-2.8); Alkaline Phosphatase 85 U/L (38-126); Aspartate Aminotransferase 49 IU/L (17-59); BUN Creatinine Ratio 17.6 (6-22); Bilirubin Total 0.6 mg/dL (0.2-1.3); Blood Urea Nitrogen 19 mg/dL (9-20); Calcium 8.8 mg/dL (8.4-10.2); Carbon Dioxide 27 mmol/L (22-32); Chloride 107 mmol/L (98-107); Estimated Glomerular Filt Rate > 60 mL/min (>60); Globulin 2.1 g/dL (1.7-4.1); Glucose 82 mg/dL (70-99); HEMOLYSIS < 15 (0-50); Lipase 87 U/L (23-300); Potassium 3.9 mmol/L (3.4-5.1); Sodium 140 mmol/L (137-145); Total Protein 5.8 g/dL (6.3-8.2)
== END ==
PROVIDERS: PCP Family Medicine; Referring Provider Family Medicine; Visit Provider Family Medicine
DX: D64.9 Anemia, unspecified (principal); N18.31 Chronic kidney disease, stage 3a; N28.9 Disorder of kidney and ureter, unspecified; E78.5 Hyperlipidemia, unspecified; I12.9 Hypertensive chronic kidney disease with stage 1 through stage 4 chronic kidney disease, or unspecified chronic kidney disease
CPT/HCPCS: 36415; 80053; 83690; 85025

== ENCOUNTER → 2024-12-07 07:55 | Outpatient (CLI) | payer OTHER, SELFPAY ==
[2024-08-18 09:45] VITALS: BMI 24.2
--- NOTE | 2024-12-07 07:56 | DI.RAD.S_ITS ---
PROCEDURE: FL UPPER GI SERIES INDICATIONS: epigastric abdominal pain COMPARISON: None. FINDINGS: KUB: Preprocedural railway signal electrician film demonstrates a nonobstructive bowel gas pattern. Moderate fecal stasis in the colon is seen. No suspicious abdominal calcifications. Visualized solid organ contours appear normal. Bony structures appear unremarkable. Esophagus: Esophageal mucosa is normal on air-contrast views. On single-contrast views, there is normal esophageal peristalsis. No strictures, extrinsic mass effects, or diverticula. There is a small to moderate sized hiatal hernia with significant gastroesophageal reflux. Contrast is seen reflux to proximal esophageal lumen. There is normal transit of a calibrated barium tablet through the esophagus. Stomach: The stomach is normally distensible, with normal rugal fold thickness. No mucosal masses or ulcers. Pylorus and duodenal bulb appear normal in morphology. Duodenal folds are normal in thickness as well. IMPRESSION: 1. Small to moderate size hiatal hernia with significant gastroesophageal reflux as above. 2. No gross intraluminal filling defect or external mass compression. No large ulceration is seen in esophagus or stomach . Dictated by: Brad Walter M.D. on 12/07/2024 at 9:25 Approved by: Brad Walter M.D. on 12/07/2024 at 9:27
== END ==
PROVIDERS: PCP Family Medicine; Referring Provider Family Medicine; Visit Provider Family Medicine
DX: K44.9 Diaphragmatic hernia without obstruction or gangrene (principal); K21.9 Gastro-esophageal reflux disease without esophagitis; R10.13 Epigastric pain
CPT/HCPCS: 74240

== ENCOUNTER 2025-03-24 16:42 | Emergency (ER) | payer OTHER, SELFPAY ==
[2024-08-18 09:45] VITALS: BMI 24.2
[2025-03-24] VITALS (17 sets, daily range): BP systolic 142–174; BP diastolic 68–108; PULSE 52–77; RESP 12–24; TEMP 36.6; O2SAT 93–99; BMI 23.6
--- NOTE | 2025-03-24 17:20 | DI.RAD.S_ITS ---
PROCEDURE: XR CHEST 1V INDICATIONS: Chest Pain TECHNIQUE: One view of the chest was acquired. COMPARISON: [facility], CR, XR CHEST 2V, 08/26/2019, 19:11. FINDINGS AND IMPRESSION: On this single view study, no airspace consolidation or pleural effusion is seen. In the right mid lung, there is a 1 cm possibly calcified nodule. Consider nonurgent CT to further evaluate. Heart size is within normal limits. Tortuous aorta. Degenerative osseous changes. Dictated by: Jovani Harmon M.D. on 03/24/2025 at 17:42 Approved by: Jovani Harmon M.D. on 03/24/2025 at 17:43
--- NOTE | 2025-03-24 17:20 | DI.CT.S_ITS ---
PROCEDURE: CT HEAD/BRAIN WO CON INDICATIONS: fall hit head TECHNIQUE: Noncontrast 4.5 mm thick angled axial sections acquired from the foramen magnum to the vertex, with coronal and sagittal reformats. For radiation dose reduction, the following was used: automated exposure control, adjustment of mA and/or kV according to patient size. COMPARISON: None. FINDINGS: Image quality: Diagnostic. CSF spaces: Basal cisterns are patent. No extra-axial fluid collections. Ventricles are normal in size and shape. Brain: No midline shift. No intracranial mass effect or hemorrhage. Basal ganglia calcifications. No area of hypodensity in a large vascular distribution to suggest acute infarction. Periventricular hypodensity consistent with chronic microvascular ischemic change. Age-related parenchymal loss. Skull and face: Calvarium and visualized facial bones are intact, without suspicious lesions. Sinuses: Visualized sinuses and mastoids are clear. IMPRESSION: No acute intracranial pathology. Dictated by: Geoffrey Urias M.D. on 03/24/2025 at 19:53 Approved by: Geoffrey Urias M.D. on 03/24/2025 at 19:58
--- NOTE | 2025-03-24 17:20 | DI.CT.S_ITS ---
PROCEDURE: CT CERVICAL SPINE WO CON INDICATIONS: fall hit head TECHNIQUE: Noncontrast 3 mm thick sections acquired from the skull base to the T4 level. Sagittal and coronal reformats were then constructed. For radiation dose reduction, the following was used: automated exposure control, adjustment of mA and/or kV according to patient size. COMPARISON: [facility], CT, CT THORACIC SPINE WITHOUT CONTRAST, 11/01/2020, 16:42. FINDINGS: Image quality: Excellent. Bones: No fractures or dislocations. Visualized superior ribs are intact. A few small sclerotic foci. For example: C7 and T1 sclerotic foci. Soft tissues: Prevertebral soft tissues are normal in thickness. Subcentimeter thyroid nodules. No paravertebral hematomas. No apical pneumothoraces. IMPRESSION: No acute osseous abnormality. A few small sclerotic osseous foci. Many of these are seen in 2020. Dictated by: Geoffrey Urias M.D. on 03/24/2025 at 19:59 Approved by: Geoffrey Urias M.D. on 03/24/2025 at 20:04
--- NOTE | 2025-03-24 17:20 | EKG_ITS ---
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
--- NOTE | 2025-03-24 17:24 | DI.RAD.S_ITS ---
PROCEDURE: XR WRIST LT MIN 3V INDICATIONS: fall TECHNIQUE: 4 views of the wrist were acquired. COMPARISON: None. 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 Vascular calcifications are present. Nonacute appearing bone fragment adjacent to the ulnar styloid. Slightly widened scapholunate interval, probably related to scapholunate ligament injury. Questionable nondisplaced deformity at the 4th metacarpal base. No displaced fracture or dislocation elsewhere. If there is high concern for occult injury, consider repeat radiography in about 7 days or cross-sectional imaging. Dictated by: Jovani Harmon M.D. on 03/24/2025 at 18:35 Approved by: Jovani Harmon M.D. on 03/24/2025 at 18:38
--- NOTE | 2025-03-24 17:24 | DI.RAD.S_ITS ---
PROCEDURE: XR FINGER LT MIN 2V INDICATIONS: fall TECHNIQUE: AP hand, 2 views of the 5th finger(s) acquired. COMPARISON: None. FINDINGS AND IMPRESSION: No displaced fracture is seen. No dislocation. Soft tissue swelling is seen, especially around the PIP joint. Background degenerative changes, particularly at the base of the thumb If there is high concern for occult injury, consider repeat radiography in about 7 days or cross-sectional imaging. Dictated by: Jovani Harmon M.D. on 03/24/2025 at 18:32 Approved by: Jovani Harmon M.D. on 03/24/2025 at 18:34
[2025-03-24 18:06] LABS: INR 1.0 (0.9-1.3); Prothrombin Time 11.1 SECONDS (9.4-12.5)
[2025-03-24 18:08] LABS: Add Manual Diff / Slide Review NO; Hematocrit 33.4 % (41-53); Hemoglobin 11.3 g/dL (13.5-17.5); Lymphocytes Absolute Auto 400 /uL (1100-4500); Mean Corpuscular HGB Conc 33.9 % (30-36); Mean Corpuscular Hemoglobin 29.6 PG (26-34); Mean Corpuscular Volume 87.3 fL (80-100); PTT Partial Thromboplastin Tim 33 SECONDS (25.1-36.5); Platelet Count 211 X10^3/uL (150-400)
[2025-03-24 18:10] LABS: Alanine Aminotransferase 22 IU/L (<50); Albumin 4.4 g/dL (3.5-5.0); Albumin Globulin Ratio 1.8 (1.0-2.8); Alkaline Phosphatase 83 U/L (38-126); Blood Urea Nitrogen 28 mg/dL (9-20); Calcium 9.4 mg/dL (8.4-10.2); Carbon Dioxide 26 mmol/L (22-32); Chloride 101 mmol/L (98-107); Creatine Kinase 57 U/L (55-170); Estimated Glomerular Filt Rate 58 mL/min (>60); Globulin 2.4 g/dL (1.7-4.1); Glucose 106 mg/dL (70-99); HEMOLYSIS < 15 (0-50); Lipase 69 U/L (23-300); Magnesium 1.9 mg/dL (1.6-2.3); Potassium 4.4 mmol/L (3.4-5.1); Sodium 135 mmol/L (137-145); Total Protein 6.8 g/dL (6.3-8.2)
--- NOTE | 2025-03-24 18:13 | DI.MRI.S_ITS ---
PROCEDURE: MR HEAD/BRAIN WO CON INDICATIONS: dizzy/ataxia TECHNIQUE: Non-contrast axial T1 spin echo, axial T2 fast spin echo, sagittal and axial FLAIR, coronal T2 fast spin echo, axial gradient echo, axial diffusion and ADC through the brain. COMPARISON: (Prior imaging is not available for review from the archive at the time of this dictation.) FINDINGS: Image quality: This examination is limited by involuntary motion artifact. CSF spaces: Ventricles appear symmetric in size and shape. Basal cisterns are patent. No extra-axial fluid collections. Brain: No intracranial bleeds or mass effects. There is cerebral volume loss for age. There are periventricular and deep white matter chronic small vessel ischemic changes. Brainstem appears normal. Diffusion-weighted images show no acute infarct. No chronic ischemic insults. Normal intravascular flow voids are present. Symmetric calcification can be seen involving the basal ganglia, which is considered to be normal for age. Skull and face: Calvarial bone marrow is normal in signal. Orbits are normal. Note is made of bilateral lens replacements. Sinuses: Sinuses and mastoids are clear. IMPRESSION: No findings of acute or subacute infarction can be seen. Note is made of age-appropriate brain parenchymal volume loss and chronic small vessel ischemic changes. To the limits of this noncontrast study, no findings of intracranial masses or mass effect can be seen. Dictated by: Waldo Pedraza M.D. on 03/24/2025 at 17:59 Approved by: Waldo Pedraza M.D. on 03/24/2025 at 18:02
--- NOTE | 2025-03-24 18:15 | ED.DIZZY ---
HPI - Dizziness General Chief Complaint: Syncope Stated Complaint: Fall, Head Injury, L Hand Injury Time Seen by Provider: 03/24/25 17:31 History of Present Illness HPI Narrative: Patient here with his . Complains of dizziness and near-syncope/fall. Patient complains of left hand pain left rib pain from his fall. He denies any chest pain shortness of breath. He felt dizzy when walking [place] He is trying to get to a bench in the [place] to sit down. No slurred speech facial droop no limb numbness tingling or weakness. Patient is not on any blood thinners. He does not complain of any face pain or nose pain. He fell onto the grass. Patient has no complaints of dizziness at this time. No recent illness no nausea vomiting diarrhea no fluid loss. No black or bloody stools. No urinary complaints. 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 Patient has had 3 previous falls this summer for various reasons some of the more mechanical induced. Patient did see primary care March 10, 2025 for follow up regarding these falls. Fast exam is negative. Patient denies passing out. He just got dizzy and fell down. Again, no chest pain palpitations numbness tingling weakness facial droop slurred speech. Related Data Home Medications ?Medication ?Instructions ?Recorded ?Confirmed zinc 50 mg tablet 50 mg PO DAILY ##0 07/01/11 04/03/25 acetaminophen-pamabrom 500 mg-25 2 tab PO PRN PRN Headache ##0 02/20/17 04/03/25 mg tablet (Midol) inulin 2 gram chewable tablet 2 gram PO BEDTIME 09/08/18 04/03/25 (Fiber Gummies) calcium carbonate (Calcium 600) 600 mg PO BID 03/13/22 04/03/25 cholecalciferol (vitamin D3) 125 125 mcg PO BID 03/13/22 04/03/25 mcg (5,000 unit) tablet (Vitamin D3) vit C 250 mg-vit E 90 mg-zinc 40 1 tab PO BID 03/13/22 04/03/25 mg-copper 1 hp-deoohc-xkihfk capsule (PreserVision AREDS-2) aspirin 81 mg tablet,delayed 81 mg PO DAILY 09/08/24 04/03/25 release (Adult Low Dose Aspirin) Previous Rx's ?Medication ?Instructions ?Recorded omeprazole 20 mg capsule,delayed 20 mg PO BID #180 caps 03/28/25 release losartan 50 mg tablet 50 mg PO DAILY #90 tabs 03/30/25 simvastatin 20 mg tablet 20 mg PO ONCE PM #90 tabs 03/30/25 amlodipine 5 mg tablet 10 mg (2 x 5 mg) PO DAILY #60 tabs 04/04/25 Allergies Allergy/AdvReac Type Severity Reaction Status Date / Time codeine (CODEINE) Allergy Mild Nausea Verified 04/03/25 16:36 Antihistamines - Alkylamine Allergy Unknown Testicular Verified 04/03/25 16:36 (ANTIHISTAMINES - ALKYLAMINE) pain Antihistamines - Allergy Unknown Testicular Verified 04/03/25 16:36 Ethanolamine (ANTIHISTAMINES pain - ETHANOLAMINE) Antihistamines - Allergy Unknown Testicular Verified 04/03/25 16:36 Ethylenediamine pain (ANTIHISTAMINES - ETHYLENEDIAMINE) Antihistamines - Piperazine Allergy Unknown Testicular Verified 04/03/25 16:36 (ANTIHISTAMINES - PIPERAZINE) pain erythromycin base AdvReac Mild NAUSEA, Verified 04/03/25 16:36 (ERYTHROMYCIN BASE) rash morphine (MORPHINE) AdvReac Mild Nausea Verified 04/03/25 16:36 lisinopril AdvReac Cough Verified 04/03/25 16:36 Review of Systems Review of Systems Narrative: GENERAL: Negative chills, fatigue, malaise, fever, sweats. HEENT: Negative sinus pain, ear pain, sore throat RESPIRATORY: Negative dyspnea, cough CARDIOVASCULAR: Negative chest pain, palpitations GASTROINTESTINAL: Negative vomiting, nausea, abdominal pain : Negative dysuria, frequency, hematuria MUSCULOSKELETAL: Positive muscle or bony pain SKIN: Negative rash, skin lesions NEUROLOGIC: Negative weakness, numbness, positive dizzy ROS Unobtainable: All systems reviewed & are unremarkable except as noted in HPI and below Patient History Medical History Concussion History of transcatheter aortic valve replacement (TAVR) Epigastric abdominal pain Anemia CKD stage 3a, GFR 45-59 ml/min Acute renal insufficiency Spinal stenosis, lumbar region with neurogenic claudication BPH (benign prostatic hyperplasia) Aortic stenosis Heart murmur Hyperglycemia Facet arthropathy, lumbar Psoriasis (~1957) Rotator cuff impingement syndrome of right shoulder Multiple lesions of metastatic malignancy Lumbar compression fracture Thoracic compression fracture Foot fracture, right Gastroesophageal reflux disease Hyperlipidemia Restless legs syndrome Hypertension Surgical History S/P aortic valve replacement Hx of right inguinal hernia repair History of colonoscopy Status post excision of lipoma Family History Unknown No pertinent family history Mother Diabetes mellitus Grandfather Cancer Social History marital status: household members: spouse occupational status: previously employed Smoking Status: Never smoker alcohol intake: current substance use type: does not use alcohol intake frequency: holidays/special occasions only Exam Narrative Exam Narrative: GENERAL: in no distress, not toxic not dyspneic HEAD: Normocephalic. Nontender scalp skull EYES: Pupils equal round ENT: Mucous membranes moist. Nontender nose and face. No gross deformity or skin injury. NECK: Trachea midline. No midline tenderness step-off of the cervical thoracic or lumbar spine. CARDIOVASCULAR: Regular rate and rhythm RESPIRATORY: Clear to auscultation. Breath sounds equal bilaterally. No wheezes, rales, or rhonchi. Mild tenderness to the left lower ribs. No crepitus no flail. No skin injury seen. GASTROINTESTINAL: Abdomen soft, non-tender. Small bruising to the left lower back EXTREMITIES: No gross deformities. There is edema bruising to the left pinky finger be able to flex and extend at the MCP PIP and the IP joints with pain. Brisk cap refills. Left wrist nontender able to flex extend supinate and pronate without difficulty. No gross deformity. BACK: No flank tenderness. Small bruising to the left lower back. NEURO: AOx4. 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 Negative pronator drift. SKIN: Warm and dry PSYCH: Not anxious, is cooperative Initial Vital Signs Initial Vital Signs: Vital Signs Temperature 97.8 F 03/24/25 17:14 Pulse Rate 57 L 03/24/25 17:14 Respiratory Rate 16 03/24/25 17:14 Blood Pressure 146/70 H 03/24/25 17:14 Pulse Oximetry 96 03/24/25 17:14 Oxygen Delivery Method Room Air 03/24/25 17:14 Procedures Orthopedic Splinting/Casting Injury #1: Time of procedure: 20:59 Side: left Upper Extremity Injury Location: finger Upper Extremity Immobilizer: finger (other) (Finger splint) Post splinting neuro exam: intact and no change Post splinting vascular exam: no change Placed by: Nursing Course Orders Ordered: Discontinued Medications Sodium Chloride (Normal Saline 0.9%) 250 mls @ 1,000 mls/hr IV NOW ONE Stop: 03/24/25 21:10 Last Infusion: 03/24/25 21:32 Dose: Infused Documented By: Admin: 03/24/25 21:12 Dose: 1,000 mls/hr Documented By: SB Vital Signs Vital signs: Vital Signs - 8 hr 03/24/25 17:14 03/24/25 17:31 03/24/25 17:32 Temperature 97.8 F Pulse Rate 57 L 54 L Pulse Rate [Orthostatic Lying] Pulse Rate [Orthostatic Sitting] Pulse Rate [Orthostatic Standing] Respiratory Rate 16 Blood Pressure 146/70 H 152/71 H Blood Pressure [Orthostatic Lying] Blood Pressure [Orthostatic Sitting] Blood Pressure [Orthostatic Standing] Pulse Oximetry 96 96 Oxygen Delivery Method Room Air 03/24/25 17:32 03/24/25 17:53 03/24/25 17:53 Temperature Pulse Rate 54 L 77 Pulse Rate [Orthostatic Lying] Pulse Rate [Orthostatic Sitting] Pulse Rate [Orthostatic Standing] Respiratory Rate 22 Blood Pressure 155/108 H Blood Pressure [Orthostatic Lying] Blood Pressure [Orthostatic Sitting] Blood Pressure [Orthostatic Standing] Pulse Oximetry 96 95 Oxygen Delivery Method 03/24/25 18:00 03/24/25 18:01 03/24/25 18:01 Temperature Pulse Rate 60 57 L Pulse Rate [Orthostatic Lying] Pulse Rate [Orthostatic Sitting] Pulse Rate [Orthostatic Standing] Respiratory Rate 16 18 Blood Pressure 160/72 H Blood Pressure [Orthostatic Lying] Blood Pressure [Orthostatic Sitting] Blood Pressure [Orthostatic Standing] Pulse Oximetry 96 95 Oxygen Delivery Method 03/24/25 19:03 03/24/25 19:30 03/24/25 19:46 Temperature Pulse Rate 60 53 L Pulse Rate [Orthostatic Lying] Pulse Rate [Orthostatic Sitting] Pulse Rate [Orthostatic Standing] Respiratory Rate 19 Blood Pressure 142/68 H Blood Pressure [Orthostatic Lying] Blood Pressure [Orthostatic Sitting] Blood Pressure [Orthostatic Standing] Pulse Oximetry 97 99 Oxygen Delivery Method Room Air 03/24/25 19:47 03/24/25 19:47 03/24/25 19:49 Temperature Pulse Rate 55 L Pulse Rate [Orthostatic Lying] Pulse Rate [Orthostatic Sitting] Pulse Rate [Orthostatic Standing] Respiratory Rate 14 Blood Pressure 147/69 H 164/74 H Blood Pressure [Orthostatic Lying] Blood Pressure [Orthostatic Sitting] Blood Pressure [Orthostatic Standing] Pulse Oximetry 95 Oxygen Delivery Method 03/24/25 19:49 03/24/25 19:51 Temperature Pulse Rate 55 L Pulse Rate [Orthostatic Lying] 58 L Pulse Rate [Orthostatic Sitting] 54 L Pulse Rate [Orthostatic Standing] 59 L Respiratory Rate 19 Blood Pressure Blood Pressure [Orthostatic Lying] 164/74 H Blood Pressure [Orthostatic Sitting] 147/69 H Blood Pressure [Orthostatic Standing] 142/68 H Pulse Oximetry 93 Oxygen Delivery Method Room Air MDM - Dizziness Lab Data 03/24/25 17:46 03/24/25 17:46 Labs: Lab Results 03/24/25 Range/Units 17:46 WBC 7.1 (4.5-11.0) X10^3/uL RBC 3.82 L (4.5-5.9) X10^6/uL Hgb 11.3 L (13.5-17.5) g/dL Hct 33.4 L (41-53) % MCV 87.3 (80-100) fL MCH 29.6 (26-34) PG MCHC 33.9 (30-36) % RDW 14.4 (11.6-14.8) % Plt Count 211 (150-400) X10^3/uL Neut % (Auto) 83.7 H (50-75) % Lymph % (Auto) 4.9 L (25-40) % [place] % (Auto) 8.7 (3-14) % Eos % (Auto) 1.5 L (2-4) % Baso % (Auto) 1.2 (0-2) % Neut # (Auto) 6000 (6667-1608) /uL Lymph # (Auto) 400 L (3460-8845) /uL [place]ruff # (Auto) 600 (0-900) /uL Eos # (Auto) 100 (0-450) /uL Baso # (Auto) 100 (0-100) /uL PT 11.1 (9.4-12.5) SECONDS INR 1.0 (0.9-1.3) APTT 33 (25.1-36.5) SECONDS Sodium 135 L (137-145) mmol/L Potassium 4.4 (3.4-5.1) mmol/L Chloride 101 (98-107) mmol/L Carbon Dioxide 26 (22-32) mmol/L BUN 28 H (9-20) mg/dL Creatinine 1.23 (0.66-1.25) mg/dL Estimated GFR 58 L (>60) mL/min BUN/Creatinine Ratio 22.8 H (6-22) Glucose 106 H (70-99) mg/dL Calcium 9.4 (8.4-10.2) mg/dL Magnesium 1.9 (1.6-2.3) mg/dL Total Bilirubin 1.0 (0.2-1.3) mg/dL AST 50 (17-59) IU/L ALT 22 (<50) IU/L Alkaline Phosphatase 83 (38-126) U/L Total Creatine Kinase 57 (55-170) U/L Troponin I < 0.012 (0.01-0.034) ng/mL NT-Pro-B Natriuret Pep 802 H (<450) pg/mL Total Protein 6.8 (6.3-8.2) g/dL Albumin 4.4 (3.5-5.0) g/dL Globulin 2.4 (1.7-4.1) g/dL Albumin/Globulin Ratio 1.8 (1.0-2.8) Lipase 69 (23-300) U/L Urine Dip Bedside Urine Glucose Negative Bedside Urine Bilirubin - Negative Bedside Urine Ketone - Negative Urine Specific [place] 1.005 Bedside Urine Occult Blood - Negative Bedside Urine pH 6.5 Bedside Urine Protein - Negative Bedside Urine Urobilinogen - Negative Bedside Urine Nitrite - Negative Bedside Urine Leukocytes - Negative Esterase Imaging Data Chest x-ray: Radiologist's Impression: [address] [address] XRay Report Signed Patient: Roosevelt Santana MR#: [id number] : 1940 Acct:[id number] Age/Sex: 84 / M Date of Service: 03/24/25 Loc: ED Accession Number: [id number] Procedure: XR chest 1V Ordering Provider: Clifford Padilla MD PROCEDURE: XR CHEST 1V INDICATIONS: Chest Pain TECHNIQUE: One view of the chest was acquired. COMPARISON: [facility], , XR CHEST 2V, 08/26/2019, 19:11. FINDINGS AND IMPRESSION: On this single view study, no airspace consolidation or pleural effusion is seen. In the right mid lung, there is a 1 cm possibly calcified nodule. Consider nonurgent CT to further evaluate. Heart size is within normal limits. Tortuous aorta. Degenerative osseous changes. Dictated by: Jovani Harmon M.D. on 03/24/2025 at 17:42 Approved by: Jovani Harmon M.D. on 03/24/2025 at 17:43 CT scan - head: Radiologist's Impression: [place] [address] CT Scan Report Signed Patient: Roosevelt Santana MR#: [id number] : 1940 Acct:[id number] Age/Sex: 84 / M Date of Service: 03/24/25 Loc: ED Accession Number: [id number] Procedure: CT head/brain wo con Ordering Provider: Clifford Padilla MD PROCEDURE: CT HEAD/BRAIN WO CON INDICATIONS: fall hit head TECHNIQUE: Noncontrast 4.5 mm thick angled axial sections acquired from the foramen magnum to the vertex, with coronal and sagittal reformats. For radiation dose reduction, the following was used: automated exposure control, adjustment of mA and/or kV according to patient size. COMPARISON: None. FINDINGS: Image quality: Diagnostic. CSF spaces: Basal cisterns are patent. No extra-axial fluid collections. Ventricles are normal in size and shape. Brain: No midline shift. No intracranial mass effect or hemorrhage. Basal ganglia calcifications. No area of hypodensity in a large vascular distribution to suggest acute infarction. Periventricular hypodensity consistent with chronic microvascular ischemic change. Age-related parenchymal loss. Skull and face: Calvarium and visualized facial bones are intact, without suspicious lesions. Sinuses: Visualized sinuses and mastoids are clear. IMPRESSION: No acute intracranial pathology. Dictated by: Geoffrey Urias M.D. on 03/24/2025 at 19:53 Approved by: Geoffrey Urias M.D. on 03/24/2025 at 19:58 CT - cervical spine: Radiologist's Impression: [address] [address] [address] Scan Report Signed Patient: Roosevelt Santana MR#: [id number] : 1940 Acct:[id number] Age/Sex: 84 / M Date of Service: 03/24/25 Loc: ED Accession Number: [id number] Procedure: CT cervical spine wo con Ordering Provider: Clifford Padilla MD PROCEDURE: CT CERVICAL SPINE WO CON INDICATIONS: fall hit head TECHNIQUE: Noncontrast 3 mm thick sections acquired from the skull base to the T4 level. Sagittal and coronal reformats were then constructed. For radiation dose reduction, the following was used: automated exposure control, adjustment of mA and/or kV according to patient size. COMPARISON: [facility], CT, CT THORACIC SPINE WITHOUT CONTRAST, 11/01/2020, 16:42. FINDINGS: Image quality: Excellent. Bones: No fractures or dislocations. Visualized superior ribs are intact. A few small sclerotic foci. For example: C7 and T1 sclerotic foci. Soft tissues: Prevertebral soft tissues are normal in thickness. Subcentimeter thyroid nodules. No paravertebral hematomas. No apical pneumothoraces. IMPRESSION: No acute osseous abnormality. A few small sclerotic osseous foci. Many of these are seen in 2020. Dictated by: Geoffrey Urias M.D. on 03/24/2025 at 19:59 Approved by: Geoffrey Urias M.D. on 03/24/2025 at 20:04 CT chest abdomen and pelvis: Radiologist's Impression: [address] [address] [address] Scan Report Signed Patient: Roosevelt Santana MR#: [id number] : 1940 Acct:[id number] Age/Sex: 84 / M Date of Service: 03/24/25 Loc: ED Accession Number: [id number] Procedure: CT chest abd pel wo con Ordering Provider: Clifford Padilla MD PROCEDURE: CT CHEST ABD PEL WO CON INDICATIONS: Fall/injury/pain/left side pain TECHNIQUE: After the administration of oral contrast, 5 mm thick sections acquired from the lung apices to the symphysis pubis. 5 mm thick coronal and sagittal reformats acquired, with additional 7 mm coronal MIP reformats through the lungs. For radiation dose reduction, the following was used: automated exposure control, adjustment of mA and/or kV according to patient size. COMPARISON: [facility], CT, CT THORACIC SPINE WITHOUT CONTRAST, 11/01/2020, 16:42. Evaluation of the solid parenchymal organs is limited without IV contrast. FINDINGS: Image quality: Diagnostic. CHEST: Lower Neck: No enlarged lymph nodes. Thyroid: No thyroid nodules which require sonographic follow up, per consensus guidelines. Axillae: No enlarged lymph nodes. Chest Wall: Unremarkable. Bones: Unremarkable. Lungs and Pleura: No pneumothorax or pleural effusions. Mild opacity or scarring at the right lung base. A few small pulmonary nodules. For example -Right lower lobe 0.4 cm, (5/140). -Right minor fissure 0.5 cm, (5/27). Heart: Heart size is normal. TAVR stent. No pericardial effusion. Thoracic Vessels: The aorta and pulmonary arteries demonstrate normal size. Mediastinum and Philomena: No enlarged lymph nodes. Esophagus: No wall thickening. Small hiatal hernia. ABDOMEN: Liver: No solid mass. Gallbladder: No radiopaque gallstones or wall thickening. Biliary ducts: No biliary dilation. Pancreas: No ductal dilation. Spleen: Size is within normal limits. Adrenal Glands: No adrenal nodules. Kidneys and Ureters: No hydronephrosis. Punctate nonobstructing right kidney stone. No solid mass. No complex renal cystic lesion which requires follow up. Stomach and Bowel: Normal colonic caliber, without significant wall thickening. Diverticulosis. Normal appendix. Peritoneum: No abnormal intraperitoneal fluid. No free air. Ventral Wall: Small fat containing umbilical hernia. Abdominal Nodes: No retroperitoneal or mesenteric adenopathy by size criteria. Vessels: Aorta and inferior vena cava are normal in size. PELVIS: Pelvic Organs: Prostatomegaly. Bladder: No stone. Pelvic Nodes: No enlarged lymph nodes. Miscellaneous: No inguinal hernias are seen. Bones: Several small sclerotic foci. T5 and L1 compression fractures, unchanged. IMPRESSION: Evaluation for solid parenchymal organ injury is limited without IV contrast. 1. No acute fracture identified. No free fluid. 2. A few small pulmonary nodules measuring 0.5 cm or less. 3. A few small sclerotic osseous foci. T5 and L1 compression fractures are unchanged. 4. Punctate nonobstructing right kidney stone. Dictated by: Geoffrey Urias M.D. on 03/24/2025 at 20:05 Approved by: Geoffrey Urias M.D. on 03/24/2025 at 20:17 MRI brain: Radiologist's Impression: [address] [address] Magnetic Resonance Report Signed Patient: Roosevelt Santana MR#: [id number] : 1940 Acct:[id number] Age/Sex: 84 / M Date of Service: 03/24/25 Loc: ED Accession Number: [id number] Procedure: MR head/brain wo con Ordering Provider: Clifford Padilla MD PROCEDURE: MR HEAD/BRAIN WO CON INDICATIONS: dizzy/ataxia TECHNIQUE: Non-contrast axial T1 spin echo, axial T2 fast spin echo, sagittal and axial FLAIR, coronal T2 fast spin echo, axial gradient echo, axial diffusion and ADC through the brain. COMPARISON: (Prior imaging is not available for review from the archive at the time of this dictation.) FINDINGS: Image quality: This examination is limited by involuntary motion artifact. CSF spaces: Ventricles appear symmetric in size and shape. Basal cisterns are patent. No extra-axial fluid collections. Brain: No intracranial bleeds or mass effects. There is cerebral volume loss for age. There are periventricular and deep white matter chronic small vessel ischemic changes. Brainstem appears normal. Diffusion-weighted images show no acute infarct. No chronic ischemic insults. Normal intravascular flow voids are present. Symmetric calcification can be seen involving the basal ganglia, which is considered to be normal for age. Skull and face: Calvarial bone marrow is normal in signal. Orbits are normal. Note is made of bilateral lens replacements. Sinuses: Sinuses and mastoids are clear. IMPRESSION: No findings of acute or subacute infarction can be seen. Note is made of age-appropriate brain parenchymal volume loss and chronic small vessel ischemic changes. To the limits of this noncontrast study, no findings of intracranial masses or mass effect can be seen. Dictated by: Waldo Pedraza M.D. on 03/24/2025 at 17:59 Approved by: Waldo Pedraza M.D. on 03/24/2025 at 18:02 Extremity x-ray #1: Radiologist's Impression: [address] [address] XRay Report Signed Patient: Roosevelt Santana MR#: [id number] : 1940 Acct:[id number] Age/Sex: 84 / M Date of Service: 03/24/25 Loc: ED Accession Number: [id number] Procedure: XR wrist LT min 3V Ordering Provider: Clifford Padilla MD PROCEDURE: XR WRIST LT MIN 3V INDICATIONS: fall TECHNIQUE: 4 views of the wrist were acquired. COMPARISON: None. 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 Vascular calcifications are present. Nonacute appearing bone fragment adjacent to the ulnar styloid. Slightly widened scapholunate interval, probably related to scapholunate ligament injury. Questionable nondisplaced deformity at the 4th metacarpal base. No displaced fracture or dislocation elsewhere. If there is high concern for occult injury, consider repeat radiography in about 7 days or cross-sectional imaging. Dictated by: Jovani Harmon M.D. on 03/24/2025 at 18:35 Approved by: Jovani Harmon M.D. on 03/24/2025 at 18:38 Extremity x-ray #2: Radiologist's Impression: [address] [address] XRay Report Signed Patient: Roosevelt Santana MR#: [id number] : 1940 Acct:[id number] Age/Sex: 84 / M Date of Service: 03/24/25 Loc: ED Accession Number: [id number] Procedure: XR finger LT min 2V Ordering Provider: Clifford Padilla MD PROCEDURE: XR FINGER LT MIN 2V INDICATIONS: fall TECHNIQUE: AP hand, 2 views of the 5th finger(s) acquired. COMPARISON: None. FINDINGS AND IMPRESSION: No displaced fracture is seen. No dislocation. Soft tissue swelling is seen, especially around the PIP joint. Background degenerative changes, particularly at the base of the thumb If there is high concern for occult injury, consider repeat radiography in about 7 days or cross-sectional imaging. Dictated by: Jovani Harmon M.D. on 03/24/2025 at 18:32 Approved by: Jovani Harmon M.D. on 03/24/2025 at 18:34 CTA - brain/neck: Radiologist's Impression: [address] [address] [address] Scan Report Signed Patient: Roosevelt Santana MR#: [id number] : 1940 Acct:[id number] Age/Sex: 84 / M Date of Service: 03/24/25 Loc: ED Accession Number: [id number] Procedure: CT angio head and neck Ordering Provider: lCifford Padilla MD PROCEDURE: CT ANGIO HEAD AND NECK INDICATIONS: Dizzy/ataxia TECHNIQUE: After the administration of intravenous contrast, 1 mm thick sections acquired from the aortic arch through the [place]. 3-dimensional ndhxapp-ahunqqzjs-ctsloxohvn (MIP) and/or volume rendering reformats were acquired of the central intracranial vasculature and neck separately. For radiation dose reduction, the following was used: automated exposure control, adjustment of mA and/or kV according to patient size. COMPARISON: [facility], MR, MR HEAD/BRAIN WO CON, 03/24/2025, 18:22. [facility], CT, CT HEAD/BRAIN WO CON, 03/24/2025, 18:07. FINDINGS: Image quality: Diagnostic. Cerebral CT Angiogram: Internal carotid arteries: No acute findings. Intracranial ICA are patent with no significant stenosis. No occlusion. No aneurysm. Anterior cerebral arteries: Unremarkable. No significant stenosis. No occlusion. No aneurysm. Middle cerebral arteries: Unremarkable. No significant stenosis. No occlusion. No aneurysm. Posterior cerebral arteries: Unremarkable. No significant stenosis. No occlusion. No aneurysm. Basilar artery: Unremarkable. No significant stenosis. No occlusion. No aneurysm. Vertebral arteries: Slight right vertebral artery dominance. Dural venous sinuses: Unremarkable given phase of enhancement. Other: Arterial phase appearance of the brain parenchyma is unremarkable. Neck CT Angiogram: Internal carotid arteries: Unremarkable. No significant stenosis. No dissection or occlusion. Common carotid arteries: Unremarkable. No significant stenosis. No dissection or occlusion. External carotid arteries: Unremarkable. No occlusion. Vertebral arteries: Unremarkable. No significant stenosis. No dissection or occlusion. Aortic Arch and Mediastinum: Partially visualized aortic arch unremarkable without evidence of aneurysm. Origins of the great vessels unremarkable. Other: Arterial phase soft tissues of the neck and chest are unremarkable. IMPRESSION: No significant intracranial arterial abnormality is seen. No significant abnormality is seen within the arteries of the neck. Any quantitative measurements of stenosis were performed using NASCET criteria. Dictated by: Jayda Shah M.D. on 03/24/2025 at 20:22 Approved by: Jayda Shah M.D. on 03/24/2025 at 20:24 [facility] Narrative Medical decision making narrative: Patient here with his . Complains of dizziness and near-syncope/fall. Patient complains of left hand pain left rib pain from his fall. He denies any chest pain shortness of breath. He felt dizzy when walking [place] He is trying to get to a bench in the [place] to sit down. No slurred speech facial droop no limb numbness tingling or weakness. Patient is not on any blood thinners. He does not complain of any face pain or nose pain. He fell onto the grass. Patient has no complaints of dizziness at this time. No recent illness no nausea vomiting diarrhea no fluid loss. No black or bloody stools. No urinary complaints. 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 Patient has had 3 previous falls this summer for various reasons some of the more mechanical induced. Patient did see primary care March 10, 2025 for follow up regarding these falls. Fast exam is negative. Patient denies passing out. He just got dizzy and fell down. Again, no chest pain palpitations numbness tingling weakness facial droop slurred speech. MDM After history and exam, CBC CMP troponin EKG CT head CT angio head and neck MRI brain CT cervical spine x-ray left wrist and finger CT chest abdomen pelvis Differential considered: Includes but not limited to Medical records reviewed: Lab Test results independently reviewed as above. Pertinent findings: WBC 7.1 hemoglobin 11 hematocrit 33 INR 1.0 sodium 135 potassium 4.4 BUN 28 creatinine 1.23 GFR 58 glucose 106 troponin less than 0.012 BNP 802 Independently reviewed EKG sinus bradycardia rate [address] elevation or depression. Left bundle-branch block seen. Imaging studies independently reviewed: Chest x-ray no acute finding CT head CT angiogram head and neck no acute finding CT cervical spine no acute finding CT chest abdomen pelvis no acute finding MRI brain no acute finding x-ray left wrist and pinky no acute finding Consultations: 6:33 p.m.. I spoke with Dr. Walter, cardiology, [facility], patient sees his partner Dr. Pool, patient does have history of left bundle-branch block. This is not new on EKG. Re-evaluations: 8:55 p.m.. Updated patient and results. Results are reassuring. Blood work imaging reassuring. Return precautions reviewed with them. Nontoxic at discharge. Dizziness nonspecific but can be related to irregular heart beat dehydration as well. They do desire discharge home and will follow up with primary care next week. Discussion: Appropriate for discharge home. Exam is reassuring. Return precautions reviewed with patient and . Patient has had multiple falls this past summer. He does have primary care to follow up with. No acute finding here today. Could be component of dehydration for today, he states he did not have very much to drink. He is feeling much better now. Diagnosis: Dizziness finger sprain wrist strain left rib contusion Discharge Plan Departure Patient Disposition: Home Clinical Impression: Dizziness Contusion of rib on left side Qualifiers: Encounter type: initial encounter Qualified Code(s): S29.8XXA - Other specified injuries of thorax, initial encounter Finger sprain Qualifiers: Encounter type: initial encounter Finger: little finger Sprain of finger site: unspecified site Laterality: left Qualified Code(s): S63.617A - Unspecified sprain of left little finger, initial encounter Instructions: DI for Finger Sprain, DI for Rib Contusion, DI for Dizziness-Nonvertigo Activity Restrictions/Additional Instructions: Your exam and laboratory studies are reassuring. Please see your family doctor next week for re-evaluation. Keep well hydrated. Continue medications. Return if worse if any questions or concerns. Please use finger splint for finger comfort. Please see your family doctor re-evaluation next week, repeat x-ray in 10 days if not improving pain or swelling. May continue Tylenol for pain. Keep well hydrated. Prescriptions: No Action zinc 50 mg Tablet 50 mg PO DAILY Qty: 0 Midol 500-25 mg tablet 2 tab PO PRN PRN (Reason: Headache) Qty: 0 omeprazole 20 mg capsule,delayed release(DR/EC) 20 mg PO BID Qty: 180 3RF simvastatin 20 mg tablet 20 mg PO ONCE PM Qty: 90 3RF losartan 50 mg tablet 50 mg PO DAILY Qty: 90 3RF amlodipine 5 mg tablet 10 mg PO DAILY Qty: 60 0RF aspirin [Adult Low Dose Aspirin] 81 mg tablet,delayed release (DR/EC) 81 mg PO DAILY cholecalciferol (vitamin D3) [Vitamin D3] 125 mcg (5,000 unit) tablet 125 mcg PO BID calcium carbonate [Calcium 600] 600 mg calcium (1,500 mg) tablet 600 mg PO BID PreserVision AREDS-2 250-90-40-1 mg capsule 1 tab PO BID Fiber Gummies 2 gram tablet,chewable 2 gram PO BEDTIME Referrals: Dami Cool DO [Primary Care Provider, Family Practice] Stand Alone Forms: Patient Portal/API
[2025-03-24 18:21] LABS: NT-proBNP (BNP-Adult 18+) 802 pg/mL (<450); Troponin I < 0.012 ng/mL (0.01-0.034)
[2025-03-24] MEDS: SODIUM CHLORIDE 0.9% 250 ML 1000 ML IV (21:12)
== END 2025-03-24 21:44 | disposition home or self-care (01) ==
PROVIDERS: Emergency Provider Emergency Medicine; PCP Family Medicine
DX: S29.8XXA Other specified injuries of thorax, initial encounter (principal); S63.617A Unspecified sprain of left little finger, initial encounter; S09.90XA Unspecified injury of head, initial encounter; R07.81 Pleurodynia; M79.642 Pain in left hand; R55 Syncope and collapse; R07.9 Chest pain, unspecified; W19.XXXA Unspecified fall, initial encounter
CPT/HCPCS: 29130; 36415; 70450; 70496; 70498; 70551; 71045; 71250; 72125; 73110; 73140; 74176; 80053; 81003; 82550; 83690; 83735; 83880; 84484; 85025; 85610; 85730; 93005; 93010; 99284; Q9967